=== PATIENT | female | born 1955 | race Caucasian/White ===

== ENCOUNTER 2018-11-04 21:08 | Inpatient (IN) | payer BC, MEDICARE ==
[2018-11-04] MEDS ORDERED: NS 0.9% 1000 ML** 1,000 ML IV ONE ×2 (21:42→23:00)
[2018-11-04] MEDS ORDERED: Ondansetron INJ* 2 MG/ML VIAL IV ONE (21:42)
[2018-11-04] MEDS ORDERED: Morphine VIAL* 10 MG/ML 1 ML VIAL IV ONE (21:42)
--- NOTE | 2018-11-04 21:53 | ED ---
Abdominal Pain/Female - HPI Summary HPI Summary: Patient complains of sudden onset left side abdominal pain starting at 7 PM tonight with associated nausea. Abdominal pain described as constant with spikes, worse with inhalation, worse with movement, radiating to left side back and middle abdomen. Patient states pain./10. Denies prior history of same. Also denies trauma, fever, cough, sore throat, CP, SOB, V/D, change in urine, change in BM, vaginal symptoms. Medical history is HTN, hypothyroid, GERD. Abdominal surgical history is hiatal hernia, total hysterectomy, 2. History of hypertension, patient states she normally takes her evening hypertension meds at 9:30pm. - History of Current Complaint Chief Complaint: EDAbdPain Stated Complaint: ABD PAIN PER PT Time Seen by Provider: 11/04/18 21:40 Hx Obtained From: Patient Onset/Duration: Sudden Onset, Lasting Hours Timing: Constant Severity Initially: Severe Severity Currently: Severe Pain Intensity: 10 Pain Scale Used: 0-10 Numeric Location: Discrete At: LUQ Radiates to: Back Aggravating Factor(s): Movement, Deep Breaths Alleviating Factor(s): Nothing Associated Signs and Symptoms: Positive: Back Pain, Nausea Allergies/Adverse Reactions: Allergies Allergy/AdvReac Type Severity Reaction Status Date / Time adhesive tape Allergy Rash Verified 11/04/18 21:12 latex Allergy Rash Verified 11/24/17 11:26 Home Medications: Home Medications Ascorbic Acid TAB* [Vitamin C TAB*] 500 mg PO DAILY 11/04/18 [History Confirmed 11/04/18] Polyethylene Glycol 3350 17 g PO DAILY 11/04/18 [History Confirmed 11/04/18] PMH/Surg Hx/FS Hx/Imm Hx Endocrine/Hematology History: Denies: Hx Diabetes Cardiovascular History: Reports: Hx Hypertension - on meds Denies: Hx Pacemaker/ICD Respiratory History: Denies: Hx Asthma GI History: Reports: Other GI Disorders - acid reflux History: Denies: Hx Dialysis, Hx Renal Disease Musculoskeletal History: Reports: Hx Arthritis, Hx Back Problems Denies: Hx Rheumatoid Arthritis, Hx Osteoporosis Sensory History: Denies: Hx Hearing Aid Opthamlomology History: Denies: Hx Eye Prosthesis EENT History: Denies: Hx Deafness Neurological History: Denies: Hx Developmental Delay Psychiatric History: Denies: Hx Panic Disorder - Cancer History Hx Chemotherapy: No Hx Radiation Therapy: No - Surgical History Surgery Procedure, Year, and Place: 1999 hyster; 2002 hiatal hernia repair and endoscopy for acid reflux. 2X c-sect in 1971 & 1974. Infectious Disease History: No Infectious Disease History: Denies: Traveled Outside the [place] in Last 30 Days - Social History Alcohol Use: None Substance Use Type: Reports: None Smoking Status (MU): Former Smoker Type: Cigarettes Have You Smoked in the Last Year: No Review of Systems Constitutional: Negative Eyes: Negative ENT: Negative Cardiovascular: Negative Respiratory: Negative Positive: Abdominal Pain, Nausea Genitourinary: Negative Musculoskeletal: Negative Skin: Negative Neurological: Negative Psychological: Normal All Other Systems Reviewed And Are Negative: Yes Physical Exam - Summary Physical Exam Summary: Moderate tenderness to palpation left upper quadrant, epigastrium. Abdominal exam otherwise unremarkable. Lung sounds clear to auscultation bilaterally. RRR. Triage Information Reviewed: Yes Vital Signs On Initial Exam: Initial Vitals Temp Pulse Resp BP Pulse Ox 97.5 F 79 18 213/88 96 11/04/18 21:11 11/04/18 21:11 11/04/18 21:11 11/04/18 21:11 11/04/18 21:11 Vital Signs Reviewed: Yes Appearance: Positive: Well-Appearing Skin: Positive: Warm Head/Face: Positive: Normal Head/Face Inspection Eyes: Positive: Normal Neck: Positive: Supple Respiratory/Lung Sounds: Positive: Clear to Auscultation Cardiovascular: Positive: Normal Abdomen Description: Positive: Other: Musculoskeletal: Positive: Normal Neurological: Positive: Normal Psychiatric: Positive: Normal AVPU Assessment: Alert - [place] Coma Scale Best Eye Response: 4 - Spontaneous Best Motor Response: 6 - Obeys Commands Best Verbal Response: 5 - Oriented Coma Scale Total: 15 Diagnostics - Vital Signs Vital Signs Temp Pulse Resp BP Pulse Ox 11/04/18 21:11 97.5 F 79 18 213/88 96 - Laboratory Result Diagrams: 11/04/18 21:52 11/04/18 21:52 Lab Statement: Any lab studies that have been ordered have been reviewed, and results considered in the medical decision making process. Abdominal Pain Fem Course/Dx - Course Course Of Treatment: Patient complains of sudden onset left side abdominal pain starting at 7 PM tonight with associated nausea. Abdominal pain described as constant with spikes, worse with inhalation, worse with movement, radiating to left side back and middle abdomen. Patient states pain./10. Denies prior history of same. Also denies trauma, fever, cough, sore throat, CP, SOB, V/D, change in urine, change in BM, vaginal symptoms. Medical history is HTN, hypothyroid, GERD. Abdominal surgical history is hiatal hernia, total hysterectomy, 2. History of hypertension, patient states she normally takes her evening hypertension meds at 9:30pm. Physical exam:Moderate tenderness to palpation left upper quadrant, epigastrium. Abdominal exam otherwise unremarkable. Lung sounds clear to auscultation bilaterally. RRR. Denies history of diabetes. States EtOH use 1-2 times a year. - Diagnoses Provider Diagnoses: Acute pancreatitis Discharge - Sign-Out/Discharge Documenting (check all that apply): Patient Departure Patient Received Moderate/Deep Sedation with Procedure: No - Discharge Plan Condition: Stable Disposition: ADMITTED TO [facility] Referrals: Payam Pineda MD [Primary Care Provider] - - Billing Disposition and Condition Condition: STABLE Disposition: Admitted to [facility]
[2018-11-04 21:57] LABS: Urine Appearance Cloudy; Urine Bacteria Absent (Absent); Urine Bilirubin Negative (Negative); Urine Blood Negative (Negative); Urine Color Yellow; Urine Glucose 2+(150 mg/dL) (Negative); Urine Ketones Negative (Negative); Urine Nitrite Negative (Negative); Urine Protein Negative (Negative); Urine Red Blood Cell Absent (Absent); Urine Specific Gravity 1.016 (1.010-1.030); Urine Squamous Epithelial Cell Present (Absent); Urine Urobilinogen Negative (Negative); Urine White Blood Cell Trace(0-5/hpf) (Absent)
[2018-11-04 22:05] LABS: ABS Basophils 0.1 10^3/ul (0-0.2); ABS Eosinophils 0.1 10^3/ul (0-0.6); ABS Lymphocytes 1.3 10^3/ul (1.0-4.8); ABS Monocytes 0.6 10^3/ul (0-0.8); ABS Neutrophils 4.6 10^3/ul (1.5-7.7); ABS Nucleated RBC 0 10^3/ul; Hematocrit 43 % (35-47); Hemoglobin 14.4 g/dl (12.0-16.0); Lymphocyte % 19.8 %; Mean Corpuscular HGB Conc 33 g/dl (31-36); Mean Corpuscular Hemoglobin 29 pg (27-31); Mean Corpuscular Volume 87 fL (80-97); Mean Platelet Volume 7.4 fL (7.4-10.4); Nucleated Red Blood Cells % 0.1; Platelet Count 266 10^3/ul (150-450); Red Blood Count 4.97 10^6/ul (4.00-5.40); Red Cell Distribution Width 16 % (10.5-15); White Blood Count 6.7 10^3/ul (3.5-10.8)
[2018-11-04 22:21] LABS: Albumin 3.9 g/dL (3.2-5.2); Albumin/Globulin Ratio 1.4 (1-3); BUN/Creatinine Ratio 24.3 (8-20); C Reactive Protein 6.55 mg/L (<8.01); EGFR African American 95.3 (>60); EGFR Non-African American 78.8 (>60); Globulin 2.8 g/dL (2-4); Total Bilirubin 0.4 mg/dL (0.2-1.0); Total Protein 6.7 g/dL (6.4-8.9)
[2018-11-04] MEDS ORDERED: Iohexol 300* (CONTRAST) 10 ML SDV IV ONE (22:30)
[2018-11-04 22:36] LABS: Potassium 4.4 mmol/L (3.5-5.0)
[2018-11-05] MEDS ORDERED: Lisinopril TAB* 10 MG PO ONE (00:02)
[2018-11-05] MEDS ORDERED: Morphine VIAL* 10 MG/ML 1 ML VIAL IV ONE (00:39)
[2018-11-05] MEDS ORDERED: Ondansetron INJ* 2 MG/ML VIAL IV PRN (00:50)
[2018-11-05] MEDS ORDERED: hydrALAZINE IV* 20 MG/ML VIAL IV SLOW PU PRN (00:51)
[2018-11-05] MEDS ORDERED: Metoprolol Tartrate IV* 1 MG/ML 5 ML VIAL IV PRN (00:53)
[2018-11-05] MEDS: NS 0.9% 1000 ML** 1,000 ML IV SCH ×2 (03:09→10:24)
[2018-11-05] MEDS: Enoxaparin(*) 40 MG/0.4 ML SYR SUBCUT SCH ×2 (03:13→21:20)
[2018-11-05 04:11] LABS: HDL Cholesterol 47.1 mg/dL
[2018-11-05 04:38] LABS: TSH (Thyroid Stimulating Horm) 9.54 mcIU/mL (0.34-5.60)
--- NOTE | 2018-11-05 05:09 | HP ---
ADMITTING HISTORY AND PHYSICAL: DATE OF ADMISSION: 11/05/18 CHIEF COMPLAINT: Left lower quadrant pain. HISTORY OF PRESENT ILLNESS: The patient is a 63-year-old lady with history of hypothyroidism, hypertension, and GERD as well as hypercholesterolemia who presented with the above chief complaint. She mentions that she was in her usual state of health until a few hours prior to admission, where she stated that she had recently enjoyed dinner with her family and they ate chicken casserole with olive oil. Two hours after their dinner, she started having some left lower quadrant abdominal pain, colicky in nature, that radiates to right across her middle abdomen and sometimes her back. No clear alleviating or exacerbating symptoms were presented by the patient. Persistence of her signs and symptoms led to her presentation and evaluation in the ER, at which point she was diagnosed to have acute pancreatitis due to her elevated lipase as well as CT scan findings consistent with acute pancreatitis. In the ED, she had been given morphine, lisinopril, 2 L normal saline bolus as well as Zofran. PAST MEDICAL HISTORY: Hypertension, hypothyroidism, GERD, hypercholesterolemia , status post 2 C-sections in the past, JOSH-BSO, status post hiatal hernia repair. ALLERGIES: NKDA. FAMILY HISTORY: Hypertension in her mother and sister. Hypothyroid in her sister. Diabetes in her 2 sisters and her mother. Ovarian cancer in her sister and her mother also had colon cancer. SOCIAL HISTORY: She quit back in 1999 and has at least a 1.8-izsa-isr-day history for 30 years. Denies any history of alcohol abuse. REVIEW OF SYSTEMS: The patient denied any current headaches, dizziness, fevers , chills. She does have some nausea, but no vomiting. She does have abdominal pain, but denies any recent constipation, diarrhea, myalgias, arthralgias, throat pain, or new skin lesions. Rest of the 14-point review of systems is, otherwise, unremarkable. PHYSICAL EXAMINATION GENERAL APPEARANCE: The patient is awake, alert, and oriented x3, not in acute distress. VITAL SIGNS: Show the most recent vital signs of records with blood pressure of 198/81, 70 beats per minute heart rate, saturating at 95% room air. HEENT: Normocephalic, atraumatic. PERRLA. Extraocular muscles are intact. Negative for icterus. Moist oral mucosa. Negative throat erythema. NECK: Soft, supple with no cervical lymphadenopathy. No JVD. CHEST: Clear to auscultation bilaterally. Good air entry. No wheezes, rales, or rhonchi. HEART: S1, S2, within normal limits. Regular rate and rhythm. No murmurs, rubs, or gallops. ABDOMEN: Soft, nondistended. Tender to the epigastric area. No rebound tenderness. Normoactive bowel sounds x4 quadrants. EXTREMITIES: No cyanosis, clubbing, or edema. PSYCHIATRIC: No active psychosis, depression, suicidal or homicidal ideation. SKIN: Warm to touch. DIAGNOSTIC STUDIES/LAB DATA: Most recent and pertinent laboratories show CBC with a WBC of 6.7, H and H of 14.4 and 43, platelets of 266. Sodium and potassium of 133 and 4.4. BUN and creatinine were found to be normal. GFR was normal. Calcium was normal. LFTs: AST of 36, ALT of 66, alkaline phosphatase of 130, total bilirubin is otherwise normal, lipase of 2605. CT scan of the abdomen shows gallbladder with no calcified stones or ductal dilatation. Pancreas has a peripancreatic induration, which is greatest about the tail and diminishes in the body. Also shows fatty liver disease, mild hiatal hernia, and status post hysterectomy. ASSESSMENT AND PLAN: The patient is a 63-year-old lady with history of hypertension, hypothyroidism, and gastroesophageal reflux disease being admitted for left lower quadrant abdominal pain due to acute pancreatitis. 1. Acute pancreatitis. Although she has history of hypercholesterolemia, she mentioned that she has stopped taking her medications in the past. Unclear what her baseline triglyceride levels are. The patient is obese and is certainly at high risk for hypertriglyceridemia and we will check fasting lipid levels in a.m. I have momentarily withheld her JAMES inhibitors and diuretics in the form of HCTZ given this can further increase the likelihood of pancreatitis. We will instead control her pressure with p.r.n. hydralazine and metoprolol thus ordered. 2. Hypothyroidism. Continue Synthroid and we will check TSH in a.m. 3. Hypertension, uncontrolled. Please see above discussion. 4. Hypercholesterolemia. We will check fasting lipid levels. We will continue watchful waiting at this time. Tomorrow, if she is able to tolerate her diet with improving clinical symptoms, she can be restarted back on her fish oil and any necessary meds that will be needed to control her hypercholesterolemia with or without hypertriglyceridemia. 5. Gastroesophageal reflux disease. Continue omeprazole. 6. Mildly elevated liver function tests. More consistent with fatty liver disease, likely due to the patient's obesity and hypertension as discussed. 7. DVT prophylaxis. We will place the patient on Lovenox subcu. 8. Disposition as above. [id number]/[facility] #: [id number] MTDD
[2018-11-05] MEDS: Levothyroxine TAB* 75 MCG TAB PO SCH (06:25)
[2018-11-05] MEDS: HYDROmorphone INJ1* 1 MG/ML SYRINGE IV SLOW PU PRN ×2 (06:34→21:32)
[2018-11-05] MEDS: Ascorbic Acid TAB* 500 MG PO SCH (08:46)
[2018-11-05] MEDS: Pantoprazole TAB * 40 MG TAB PO SCH (08:47)
[2018-11-05] MEDS ORDERED: NS 0.9% 1000 ML** 1,000 ML IV SCH (13:23)
--- NOTE | 2018-11-05 13:27 | PN ---
Subjective Date of Service: 11/05/18 Interval History: HD #1 on 11/05/18 63 yo F with PMH HTN, hypothyroid, GERD, HLD who presents with LUQ pain, found to have acute pancreatitis (unclear origin, no stone, marissa ~200, no etoh, no new meds). Admitted last night. No acute events, VSS, excellent UOP no BM yet This morning seen and feels OK, would like to advance diet, she actually is asking about going home but we discuss trial diet first. Tearful at times as she feels sad to be missing work, but supportive at bedside. She does still have epigastric pain, but improved with meds, denies CP, SOB, other GI or complaints Objective Active Medications: Ascorbic Acid (Vitamin C Tab*) 500 mg PO DAILY [facility] Last Admin: 11/05/18 08:46 Dose: 500 mg Enoxaparin Sodium (Lovenox(*)) 40 mg SUBCUT Q24HR@2100 [facility] Last Admin: 11/05/18 03:13 Dose: Not Given Hydralazine HCl (Apresoline Iv*) 10 mg IV SLOW PU Q6H PRN PRN Reason: Hypertension Hydromorphone HCl (Dilaudid Inj1s*) 0.5 mg IV SLOW PU Q6H PRN PRN Reason: PAIN Last Admin: 11/05/18 06:34 Dose: 0.5 mg Sodium Chloride (Ns 0.9% 1000 Ml) 1,000 mls @ 150 mls/hr IV PER RATE [facility] Stop: 11/07/18 07:39 Last Admin: 11/05/18 10:24 Dose: 150 mls/hr Levothyroxine Sodium (Synthroid Tab*) 75 mcg PO DAILY@0600 [facility] Last Admin: 11/05/18 06:25 Dose: 75 mcg Metoprolol Tartrate (Lopressor Iv*) 5 mg IV Q6H PRN PRN Reason: BLOOD PRESSURE Ondansetron HCl (Zofran Inj*) 4 mg IV Q6H PRN PRN Reason: NAUSEA Pantoprazole Sodium (Protonix Tab*) 40 mg PO DAILY [facility] Last Admin: 11/05/18 08:47 Dose: 40 mg Vital Signs - 8 hr 11/05/18 11/05/18 11/05/18 06:34 07:44 08:00 Temperature 97.8 F Pulse Rate 63 Respiratory 20 16 18 Rate Blood Pressure 133/58 (mmHg) O2 Sat by Pulse 94 Oximetry 11/05/18 08:46 Temperature Pulse Rate Respiratory 18 Rate Blood Pressure (mmHg) O2 Sat by Pulse Oximetry Oxygen Devices in Use Now: None Appearance: Pleasant woman in NAD Eyes: No Scleral Icterus Ears/Nose/Mouth/Throat: NL Teeth, Lips, Gums Neck: NL Appearance and Movements; NL JVP, Trachea Midline Respiratory: Symmetrical Chest Expansion and Respiratory Effort, Clear to Auscultation Cardiovascular: NL Sounds; No Murmurs; No JVD, RRR Abdominal: - - No distention, soft TTP epigastric no gaurding or rebound Lymphatic: No Cervical Adenopathy Extremities: No Edema Skin: No Rash or Ulcers Neurological: Alert and Oriented x 3 Result Diagrams: 11/04/18 21:52 11/04/18 21:52 Assess/Plan/Problems-Billing Assessment: 63F with PMH HTN, hypothyroidism, GERD, HLD who presents with LUQ pain, found to have acute pancreatitis of unclear origin without e/o gallbladder disease, hypertriglycerides, alcohol use or new medications. Presumed idiopathic at this time with a BiSAP score of 1. - Patient Problems (1) Pancreatitis Current Visit: Yes Status: Acute Code(s): K85.90 - ACUTE PANCREATITIS WITHOUT NECROSIS OR INFECTION, UNSP SNOMED Code(s): 65106305 Comment: Presumed idipoathic at this time, though hx of hypertri - Continue NS @ 50cc - Pain control with PRN dilaudid - NPO until dinner 11/05, then advance to clear liquids (2) Hypertension Current Visit: Yes Status: Acute Code(s): I10 - ESSENTIAL (PRIMARY) HYPERTENSION SNOMED Code(s): 07461169 Comment: Hypertensive 2/2 to pain on arrival, was placed on PRN IV - Watch today, resume home Lisinopril/HCTZ tomorrow 11/06 (3) Hypothyroid Current Visit: Yes Status: Acute Code(s): E03.9 - HYPOTHYROIDISM, UNSPECIFIED SNOMED Code(s): 66543926 Comment: - Continue home dose Levothyroxine - TSH slightly elevated (4) GERD (gastroesophageal reflux disease) Current Visit: Yes Status: Acute Code(s): K21.9 - GASTRO-ESOPHAGEAL REFLUX DISEASE WITHOUT ESOPHAGITIS SNOMED Code(s): 726699220 Comment: - Continue PPI (5) DVT prophylaxis Current Visit: Yes Status: Acute Code(s): CFW7716 - SNOMED Code(s): 338450783 Comment: - LMWH (6) Full code status Current Visit: Yes Status: Acute Code(s): Z78.9 - OTHER SPECIFIED HEALTH STATUS SNOMED Code(s): 953654987 Status and Disposition: Inpatient at this time for IV fluids and pain meds. If tolerating reasonable PO could d/c to home.
[2018-11-05] MEDS: Al Hydrox/Mg Hydrox/Simet LIQ* 30 ML UDC PO PRN (17:42)
[2018-11-06] MEDS: Levothyroxine TAB* 75 MCG TAB PO SCH (05:36)
[2018-11-06 06:26] LABS: ABS Basophils 0 10^3/ul (0-0.2); ABS Eosinophils 0.1 10^3/ul (0-0.6); ABS Lymphocytes 1.2 10^3/ul (1.0-4.8); ABS Monocytes 0.9 10^3/ul (0-0.8); ABS Neutrophils 6.7 10^3/ul (1.5-7.7); ABS Nucleated RBC 0 10^3/ul; Eosinophil % 1.1 %; Hematocrit 41 % (35-47); Hemoglobin 13.5 g/dl (12.0-16.0); Lymphocyte % 13.1 %; Mean Corpuscular HGB Conc 33 g/dl (31-36); Mean Corpuscular Hemoglobin 29 pg (27-31); Mean Corpuscular Volume 87 fL (80-97); Mean Platelet Volume 7.8 fL (7.4-10.4); Nucleated Red Blood Cells % 0; Platelet Count 256 10^3/ul (150-450); Red Blood Count 4.73 10^6/ul (4.00-5.40); Red Cell Distribution Width 15 % (10.5-15); White Blood Count 8.8 10^3/ul (3.5-10.8)
[2018-11-06 06:49] LABS: Albumin 3.6 g/dL (3.2-5.2); Albumin/Globulin Ratio 1.3 (1-3); BUN/Creatinine Ratio 18.6 (8-20); Calcium 8.6 mg/dL (8.6-10.3); EGFR African American 123.8 (>60); EGFR Non-African American 102.3 (>60); Globulin 2.8 g/dL (2-4); Magnesium 1.9 mg/dL (1.9-2.7); Phosphorus 2.8 mg/dL (2.5-5.0); Total Protein 6.4 g/dL (6.4-8.9)
[2018-11-06] MEDS: Lisinopril TAB* 10 MG PO SCH (08:32)
[2018-11-06] MEDS: Ascorbic Acid TAB* 500 MG PO SCH (08:32)
[2018-11-06] MEDS: Hydrochlorothiazide TAB* 25 MG PO SCH (08:32)
[2018-11-06] MEDS: Pantoprazole TAB * 40 MG TAB PO SCH (08:33)
[2018-11-06] MEDS: Acetaminophen TAB* 325 MG PO PRN (09:38)
[2018-11-06] MEDS: Polyethylene Glycol 3350* 17 GM PACKET PO SCH ×2 (12:02→20:10)
[2018-11-06] MEDS: Al Hydrox/Mg Hydrox/Simet LIQ* 30 ML UDC PO PRN (15:18)
--- NOTE | 2018-11-06 15:25 | PN ---
Subjective Date of Service: 11/06/18 Interval History: HOSPITALIST PROGRESS NOTE Patient seen and examined at bedside. Care reviewed and d/w April Dupree RN. She feels better today. Abdominal pain is much improved, "just sore now". Denies N/V, tolerating clear liquids well. Passing flatus, no BM. Describes prior episodes of abdominal pain, but not as severe, sometimes associated with greasy food. Describes severe hypertrygliceridemia many years ago, not responsive to meds. She decided to stop taking her pills and doesn't check them anymore. Family History: Unchanged from Admission Social History: Unchanged from Admission Past Medical History: Unchanged from Admission Objective Active Medications: Acetaminophen (Tylenol Tab*) 650 mg PO Q6H PRN PRN Reason: PAIN Last Admin: 11/06/18 09:38 Dose: 650 mg Al Hydrox/Mg Hydrox/Simethicone (Maalox Plus*) 30 ml PO Q4H PRN PRN Reason: DYSPEPSIA Last Admin: 11/06/18 15:18 Dose: 30 ml Ascorbic Acid (Vitamin C Tab*) 500 mg PO DAILY [facility] Last Admin: 11/06/18 08:32 Dose: 500 mg Enoxaparin Sodium (Lovenox(*)) 40 mg SUBCUT Q24HR@2100 [facility] Last Admin: 11/05/18 21:20 Dose: Not Given Hydrochlorothiazide (Hydrodiuril Tab*) 12.5 mg PO DAILY [facility] Last Admin: 11/06/18 08:32 Dose: 12.5 mg Hydromorphone HCl (Dilaudid Inj1s*) 0.5 mg IV SLOW PU Q6H PRN PRN Reason: PAIN Last Admin: 11/05/18 21:32 Dose: 0.5 mg Levothyroxine Sodium (Synthroid Tab*) 75 mcg PO DAILY@0600 [facility] Last Admin: 11/06/18 05:36 Dose: 75 mcg Lisinopril (Prinivil Tab*) 10 mg PO DAILY [facility] Last Admin: 11/06/18 08:32 Dose: 10 mg Ondansetron HCl (Zofran Inj*) 4 mg IV Q6H PRN PRN Reason: NAUSEA Last Admin: 11/05/18 21:31 Dose: 4 mg Pantoprazole Sodium (Protonix Tab*) 40 mg PO DAILY [facility] Last Admin: 11/06/18 08:33 Dose: 40 mg Polyethylene Glycol/Electrolytes (Miralax*) 17 gm PO 0800,2100 [facility] Last Admin: 11/06/18 12:02 Dose: 17 gm Vital Signs - 8 hr 11/06/18 11/06/18 11/06/18 07:43 08:06 11:27 Temperature 97.7 F 97.6 F Pulse Rate 82 72 Respiratory 16 18 20 Rate Blood Pressure 157/68 156/70 (mmHg) O2 Sat by Pulse 92 95 Oximetry 11/06/18 11/06/18 11:48 11:54 Temperature 97.6 F Pulse Rate 72 Respiratory 20 16 Rate Blood Pressure 156/70 (mmHg) O2 Sat by Pulse 95 Oximetry Oxygen Devices in Use Now: None Appearance: Obese lady sitting up in a recliner in NAD. Eyes: No Scleral Icterus Ears/Nose/Mouth/Throat: Mucous Membranes Moist Neck: Trachea Midline Respiratory: Symmetrical Chest Expansion and Respiratory Effort, Clear to Auscultation Cardiovascular: NL Sounds; No Murmurs; No JVD, RRR Abdominal: NL Sounds; No Tenderness; No Distention Neurological: Alert and Oriented x 3, NL Muscle Strength and Tone Result Diagrams: 11/06/18 05:52 11/06/18 05:52 Assess/Plan/Problems-Billing Assessment: 63yo F with PMH HTN, hypothyroidism, GERD, HLD who presents with LUQ pain, found to have acute pancreatitis of unclear origin without gallbladder disease, hypertriglycerides, alcohol use or new medications. - Patient Problems (1) Pancreatitis Comment: - She denies ETOH use or new medications. TG are 274. - With her body habitus and prior episodes of pain with fatty food, suspect it could still be biliary - check RUQ US. - Autoimmune less likely, but also possible - check IgG4. - GI consult requested. - Advance to low fat diet as tolerated. - D/c IVF. (2) Hypertension Comment: - Better controlled. - Continue Lisinopril/HCTZ. (3) GERD (gastroesophageal reflux disease) Comment: - Continue Pantoprazole. (4) Hypothyroid Comment: - Continue home dose Levothyroxine. (5) DVT prophylaxis Comment: - Lovenox. (6) Full code status Status and Disposition: Inpatient.
--- NOTE | 2018-11-06 17:57 | CONS ---
GASTROENTEROLOGY CONSULT: DATE: 11/06/18 REFERRING PHYSICIANS: Dr. Payam Pineda, Dr. Nisa Cook. REASON FOR CONSULT: Pancreatitis without clear-cut cause. HISTORY: This 63-year-old woman, title i director for [employer], came to the emergency room Monday evening with the onset of left mid to lower quadrant abdominal pain that went around to the back somewhat. Her vitals were steady. CBC showed a normal white count, but her lipase was substantially elevated at [address] scan suggested pancreatitis. Over the next couple days, she has felt better and yesterday she had clear liquids and then today a soft diet, though she developed some increased pain after some meat for lunch. She states she has had other episodes of pain similar to this, one about a year ago that did not go on as long and she did not seek any care and may be one 5 years ago. She differentiates this pain from that which is characteristic of her acid indigestion and/or was relieved by having a fundoplication a dozen years ago. Her current blood pressure medicines, hydrochlorothiazide and benazepril, have been taken for more than 20 years. Her cholesterol has been up, but apparently not her triglycerides. She quit taking her cholesterol medicine 2 years ago since "it never got to be where he wanted it to be." Again, she stopped it 2 years ago and is considering restarting it. There is no family history of pancreatitis. It is remarkable that this is her only emergency room visit in the last 19 years. PAST MEDICAL HISTORY: 1. Morbid obesity. 2. Hypertension - no sequelae. 3. Hypothyroidism. 4. Status post x2. 5. Total abdominal hysterectomy and oophorectomy in 1999. 6. Laparoscopic Ac fundoplication - she was off acid blockers for about 6 years with this. 7. Ex-smoker - quit in 1999, at which point, she gained a lot of weight. 8. Family history of colon cancer - she has gotten regular colonoscopies through the years including 2012. 9. Persistent GERD - she had upper endoscopy by Dr. Griffiths, May 2018. MEDICATIONS: As an outpatient, omeprazole 20 mg once or twice a day, hydrochlorothiazide 12.5, benazepril 30, Cetirizine 10 mg p.r.n., polyethylene glycol p.r.n. SOCIAL HISTORY: She is and has 2 children. The only medical person in the family is a niece in [place], who works at a [employer]. REVIEW OF SYSTEMS: No history of syncope, palpitations, TX, TB, hemoptysis, TIA , CVA, seizure, hepatitis, or jaundice. The vast majority of her labs had been at Dr. Pineda's office. The only triglycerides here yesterday of 275. EXAM: She is a morbidly obese woman, lying in bed, smiling, sitting upright, entertaining her and daughter. She is afebrile, pulse 72 and regular, blood pressure 156/70. HEENT exam is unremarkable. She has no icterus. There is no adenopathy. Her lungs are clear, heart sounds are regular. Breast and pelvic exams deferred. The abdomen is grossly obese, but symmetric. There is no gross hernia. Bowel sounds are normal and active. There is some deep tenderness, but the exam is quite limited. Extremities show obesity, 1+ ankle edema, and no other abnormality. LABS: Lipase has fallen to 221. LFTs have remained normal. Remarkably, her CRP is not really elevated as it is 6.55. BUN is 11, creatinine 0.59. Gallbladder ultrasound - some sludge and a common duct of 5 mm. There is a fatty liver. CT scan - mild stranding around the pancreas. There is no pancreatic duct dilation. On the sagittal images, series 601, image 52 shows a symmetric pancreatic duct, which is 52 to 55. IMPRESSION: This 63-year-old woman with morbid obesity has had her first documented bout of pancreatitis. Etiology is not quite clear. It is not alcohol and not any new medication. I doubt the blood pressure medicines given 20 years ago are related. If triglycerides over 750 to [address] documented in Dr. Pineda's past records, I would favor the gallbladder sludge as being potential etiologic and a surgery consult for potential cholecystectomy. There is certainly uncertainty in this assessment, but the possibilities are limited and potential benefit for cholecystectomy is substantial. [id number]/[facility] #: [id number] [facility]
[2018-11-06] MEDS: Enoxaparin(*) 40 MG/0.4 ML SYR SUBCUT SCH (21:00)
[2018-11-07] MEDS: Acetaminophen TAB* 325 MG PO PRN (00:12)
[2018-11-07] MEDS: Levothyroxine TAB* 75 MCG TAB PO SCH (05:08)
[2018-11-07 08:30] VITALS: BP 148/66
[2018-11-07] MEDS: Polyethylene Glycol 3350* 17 GM PACKET PO SCH (08:31)
[2018-11-07] MEDS: Ascorbic Acid TAB* 500 MG PO SCH (08:32)
[2018-11-07] MEDS: Hydrochlorothiazide TAB* 25 MG PO SCH (08:32)
[2018-11-07] MEDS: Lisinopril TAB* 10 MG PO SCH (08:33)
[2018-11-07] MEDS: Pantoprazole TAB * 40 MG TAB PO SCH (08:33)
[2018-11-07 08:38] LABS: ABS Basophils 0.1 10^3/ul (0-0.2); ABS Eosinophils 0.2 10^3/ul (0-0.6); ABS Lymphocytes 1.2 10^3/ul (1.0-4.8); ABS Monocytes 0.9 10^3/ul (0-0.8); ABS Neutrophils 6.3 10^3/ul (1.5-7.7); ABS Nucleated RBC 0 10^3/ul; Eosinophil % 2.3 %; Hematocrit 40 % (35-47); Hemoglobin 13.3 g/dl (12.0-16.0); Lymphocyte % 14.1 %; Mean Corpuscular HGB Conc 34 g/dl (31-36); Mean Corpuscular Hemoglobin 29 pg (27-31); Mean Corpuscular Volume 87 fL (80-97); Mean Platelet Volume 7.2 fL (7.4-10.4); Nucleated Red Blood Cells % 0; Platelet Count 248 10^3/ul (150-450); Red Blood Count 4.57 10^6/ul (4.00-5.40); Red Cell Distribution Width 15 % (10.5-15); White Blood Count 8.7 10^3/ul (3.5-10.8)
[2018-11-07 09:01] LABS: Albumin 3.6 g/dL (3.2-5.2); Albumin/Globulin Ratio 1.3 (1-3); BUN/Creatinine Ratio 16.1 (8-20); Calcium 8.8 mg/dL (8.6-10.3); EGFR African American 116.9 (>60); EGFR Non-African American 96.6 (>60); Globulin 2.8 g/dL (2-4); Potassium 3.8 mmol/L (3.5-5.0); Total Bilirubin 1.2 mg/dL (0.2-1.0); Total Protein 6.4 g/dL (6.4-8.9)
--- NOTE | 2018-11-08 10:23 | DS ---
CC: Dr. Pineda; Dr. Glass * DISCHARGE SUMMARY: DATE OF ADMISSION: 11/05/18. DATE OF DISCHARGE: 11/07/18. PRIMARY CARE PROVIDER: Dr. Pineda. CONSULTING DUMPCART DRIVER: Dr. Glass. DISCHARGE DIAGNOSIS: Acute pancreatitis, hypertriglyceridemia induced versus biliary. SECONDARY DIAGNOSES: 1. Hypertension. 2. Hypothyroidism. 3. Gastroesophageal reflux disease. 4. Mixed hyperlipidemia. 5. Obesity with a BMI of 38. MEDICATION LIST: 1. Vitamin C 500 mg p.o. daily. 2. Benazepril 30 mg p.o. daily. 3. Cetirizine 10 mg p.o. daily. 4. Hydrochlorothiazide 12.5 mg p.o. daily. 5. Levothyroxine 75 mcg p.o. daily. 6. Multivitamin 1 tablet p.o. daily. 7. Fish oil 1000 mg p.o. daily. 8. Omeprazole 20 mg p.o. b.i.d. 9. MiraLAX 17 g p.o. daily. New medication: 1. Rosuvastatin 10 mg p.o. daily. HOSPITAL COURSE: Ms. Rowell is a 63-year-old lady with a past medical history as stated above that presented to the emergency room with complaints of left- sided abdominal pain that had started after enjoying dinner of chicken casserole made with olive oil. The pain was described as colicky in nature, radiating to the middle abdomen and to her back. For more details about her presentation, I refer you to her history and physical. In the emergency room, the patient was noted to have a lipase of 2600. CT of the abdomen and pelvis showed acute interstitial edematous pancreatitis, which is greatest above the tail and to a lesser degree the body. Fatty infiltration of the liver. The patient was admitted under the impression of pancreatitis. The etiology was not immediately clear. The patient does have the body habitus and a history that would suggest biliary etiology, especially considering that she had similar episodes in the past after eating fatty foods, but not as severe as this one and they would resolve spontaneously. Right upper quadrant ultrasound revealed hepatomegaly with fatty infiltration of the liver and biliary sludge, but the CBD measured 0.5 cm and there was no cholelithiasis, wall thickening or pericholecystic fluid. On the other hand, the patient also has a history of untreated hypertriglyceridemia. Her triglycerides in the hospital were 274, but as per information from her PCP's office, she has had numbers in the 700s to 800s. There is no new medication to suggest drugs as etiology, and IgG was sent for autoimmune hepatitis and this is negative. She was seen in consultation by Gastroenterology (Dr. Glass), who agreed with this conundrum of biliary versus hypertriglyceridemia as etiology. After multiple conversations with the patient, Dr. Glass and Dr. Pineda, the plan at this point is for the patient to be discharged home as her symptoms have resolved and she is able to tolerate a low-fat diet. She is agreeable with trying lipid-lowering drugs again and she will be started on rosuvastatin next week. Her PCP will monitor her lipid profile. As described above, I am concerned that her presentation could still be compatible with a biliary etiology and I discussed with the patient the possibility of surgical consultation for laparoscopic cholecystectomy, but she is hesitant to pursue surgery at this time. She wants to try rosuvastatin and hopefully she would not have another episode as long as she adheres to her low fat diet, but if she does develop symptoms again even if self limited, I believe a surgical consultation is indicated for an elective laparoscopic cholecystectomy. The patient had resolution of her abdominal pain, was asymptomatic, able to tolerate a low fat diet and anxious for discharge. She did have low-grade fever of 100.8 the night prior to discharge with no other signs of infection. No leukocytosis. Other vital signs were stable and as described, her right upper quadrant ultrasound had no signs of cholecystitis. Urinalysis was also negative. She had no respiratory symptoms, so this one episode of low-grade fever would not require her staying longer in the hospital and I do not think antibiotics are indicated also. The patient does not have a diagnosis of diabetes, but she did have hyperglycemia while in the hospital. This may be secondary to her pancreatitis. At this point, she was advised to lower her carbohydrate intake and a hemoglobin A1c was requested and the results should be followed as outpatient, as the patient does meet the body habitus of someone with metabolic syndrome and she is at high risk for type 2 diabetes. Her PCP needs to follow up the hemoglobin A1c result as outpatient. PHYSICAL EXAMINATION: Vital Signs: Temperature 97.8, heart rate is 95, respiratory rate is 18, oxygen saturation 95% on room air, blood pressure is 148 /66. General: The patient is a pleasant obese elderly lady, sitting up in bed in no acute distress. CVS: Normal S1, S2. Regular rate and rhythm. Chest: Breath sounds bilaterally with no added sounds. Abdomen is soft, nontender, nondistended. Bowel sounds are present. Extremities: No edema. Neuro: She is alert and oriented x3. She is able to move all 4 extremities. DIET: Low-fat consistent carb diet. ACTIVITIES: As tolerated. DISPOSITION: To home. STATUS WHILE IN THE HOSPITAL: Inpatient. CONDITION AT THE TIME OF DISCHARGE: Fair. Please keep in mind this is a summarized version of this patient's hospital stay. If you need more information, please feel free to call me at [phone] or please obtain the full medical records. TIME SPENT: Approximately 45 minutes were spent to complete this discharge. [id number]/CPS #: [id number] MTDD
== END 2018-11-07 12:07 | disposition home or self-care (01) | DRG 282 ==
LOC: ED 21:08 → MEDTELE 11-05 00:43
PROVIDERS: ADMIT Student in an Organized Health Care Education/Training Program; ATTEND Internal Medicine
DX: K85.10 Biliary acute pancreatitis without necrosis or infection (principal); I10 Essential (primary) hypertension; E03.9 Hypothyroidism, unspecified; K21.9 Gastro-esophageal reflux disease without esophagitis; M19.90 Unspecified osteoarthritis, unspecified site; R40.2412 Glasgow coma scale score 13-15, at arrival to emergency department; K44.9 Diaphragmatic hernia without obstruction or gangrene; K76.0 Fatty (change of) liver, not elsewhere classified; E66.01 Morbid (severe) obesity due to excess calories; E78.1 Pure hyperglyceridemia; R73.9 Hyperglycemia, unspecified; E88.81 Metabolic syndrome and other insulin resistance; E78.2 Mixed hyperlipidemia; Z90.710 Acquired absence of both cervix and uterus; Z87.891 Personal history of nicotine dependence; Z90.722 Acquired absence of ovaries, bilateral; Z80.0 Family history of malignant neoplasm of digestive organs; Z72.89 Other problems related to lifestyle; Z68.38 Body mass index [BMI] 38.0-38.9, adult; Z88.8 Allergy status to other drugs, medicaments and biological substances; Z91.040 Latex allergy status
CPT/HCPCS: 36415; 74177; 76705; 80053; 80061; 81003; 81015; 82150; 82784; 82787; 83036; 83605; 83690; 83735; 84100; 84443; 84484; 85025; 86140; 87086; 93005; 99284; A9270-GY; J0360; J1170; J1650; J2270; J2405; Q9967

== ENCOUNTER 2018-11-22 15:24 | Inpatient (IN) | payer BC, MEDICARE ==
--- OUTSIDE RECORDS SUMMARY | 2018-11-22 15:50 | XMS REPORT | Continuity of Care Document ---
:1955 External Reference #:[id number] Author Name HugoCelioenrrique Care Team Providers Name Role Phone Payam Pineda MD Primary Care Physician Unavailable Payers Date Identification Numbers Payment Provider Subscriber Effective: 2011 Policy Number: [id number] [employer] Lamine Rowell Expires: 2017 PayID: [id number] [address] [address] [place]av[place] [address] Effective: 2017 Policy Number: [id number] [employer] [place] Lamine Rowell Expires: 2018 PayID: [id number] [address] [address] [place] Villavicencio [address] Effective: 2018 Policy Number: [id number] BS Ayana Rowell PayID: [id number] [address] [address] [place] Villavicencio [address] Effective: 2018 Policy Number: [id number] Medicare Bia Rowell PayID: [id number] [address] [place] [address] Advance Directives Description No Information Available Problems Description No Information Family History Date Family Member(s) Observation Comments General Cancer General Diabetes General Heart Disease Social History Type Date Description Comments Sex Unknown 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 ETOH Use Denies alcohol use Tobacco Use Start: Unknown Patient has never smoked Smoking Status Reviewed: 11/20/18 Patient has never smoked Exercise Type/Frequency Does not exercise Allergies, Adverse Reactions, Alerts Description No Known Drug Allergies Medications Medication Date Status Form Strength Qnty SIG Indications Ordering Provider Levothyroxine Sodium / Active Tablets 75mcg 90tab 1 by Unknown 0000 s mouth every day Hydrochlorothiazide / Active Tablets 12.5mg 90tab 1 by Unknown 0000 s mouth every day Benazepril HCL / Active Tablets 20mg 30tab 1 by Unknown 0000 s mouth every day Multivitamins / Active Unknown 0000 Vitamin C / Active Unknown 0000 Omeprazole / Active Capsules 20mg 90cap [address] s mouth every day Crestor / Active Tablets 10mg 1 by Unknown 0000 mouth every day Welchol / Hx Tablets 625mg 180ta 3 by Unknown 0000 - bs mouth 09/24/ twice 2019 a day Medications Administered in Office Medication Date Status Form Strength Qnty SIG Indications Ordering Provider Depomedrol Administered Injection Clarisse 40MG 018 SUSAN De Oliveira Immunizations Description No Information Available Vital Signs Date Vital Result Comment 11/20/2018 8:00am Height 65 inches 5'5" Weight 210.00 lb Heart Rate 72 /min BP Systolic 120 mmHg BP Diastolic 70 mmHg Respiratory Rate 12 /min Pain Level 4 BMI (Body Mass Index) 34.9 kg/m2 08/22/2018 2:50pm Height 65 inches 5'5" Weight 223.00 lb Heart Rate 85 /min BP Systolic 140 mmHg BP Diastolic 72 mmHg Respiratory Rate 20 /min Body Temperature 96.3 F Pain Level 4 BMI (Body Mass Index) 37.1 kg/m2 07/10/2018 1:24pm Height 65 inches 5'5" Weight 223.00 lb Heart Rate 76 /min BP Systolic 142 mmHg BP Diastolic 80 mmHg Respiratory Rate 14 /min Pain Level 8 BMI (Body Mass Index) 37.1 kg/m2 09/24/2014 2:05pm Height 65 inches 5'5" Weight 220.00 lb Pain Level 0 BMI (Body Mass Index) 36.6 kg/m2 09/03/2014 3:29pm Height 65 inches 5'5" Weight 220.00 lb Pain Level 0 BMI (Body Mass Index) 36.6 kg/m2 08/13/2014 4:10pm Height 65 inches 5'5" Weight 220.00 lb Heart Rate 100 /min BMI (Body Mass Index) 36.6 kg/m2 07/30/2014 6:27pm Height 65 inches 5'5" Weight 220.00 lb Heart Rate 90 /min BP Systolic 156 mmHg BP Diastolic 84 mmHg BMI (Body Mass Index) 36.6 kg/m2 Results Description No Information Available Procedures Date Code Description Status 07/10/201823151 Inject/Drain Joint/Bursa Major W/O US Completed 09/03/2014 65224 Rad Exam; Ankle Comp Completed 08/13/2014 69647 Rad Exam; Ankle Comp Completed 08/13/2014 87788 Walking Cast Completed 07/30/2014 99782 CLSD TX Distal Fib FX (Lateral Malleolus) w/o manipulation Completed Encounters Type Date Location Provider Dx Diagnosis [facility] Acute pancreatitis 9:45a dc Mackey M.D. without necrosis or Hospitalists infection, unsp I10 Essential (primary) hypertension E03.9 Hypothyroidism, unspecified K21.9 Gastro-esophageal reflux disease without esophagitis E78.5 Hyperlipidemia, unspecified E66.9 Obesity, unspecified Z68.38 Body mass index (BMI) 38.0-38.9, adult [facility] 9:40a dc Mackey M.D. without necrosis Hospitalists or infection, unsp I10 Essential (primary) hypertension K21.9 Gastro-esophageal reflux disease without esophagitis E03.9 Hypothyroidism, unspecified Office Visit 11/05/2018 [facility] Holger Robbins K85.90 Acute 9:38a dc Mackey MD pancreatitis Hospitalists without necrosis or infection, unsp E03.9 Hypothyroidism, unspecified I16.0 Hypertensive urgency E78.00 Pure hypercholesterolemia, unspecified K21.9 Gastro-esophageal reflux disease without esophagitis R94.5 Abnormal results of liver function studies Office Visit 08/22/2018 [facility] M17.12 Unilateral primary 2:45p Services Of MD Ramya osteoarthritis, left Larissa.MBarbi knee M25.562 Pain in left knee Office Visit 07/10/2018 1:15p [facility] M25.562 Pain in left Services Of Arlen Bui MD knee M17.12 Unilateral primary osteoarthritis, left knee Plan of Treatment 11/20/2018 - Ward Bui, MDM25.562 Pain in left kneeNew Xrays:MRI Knee Left W/O, Ordered: 11/20/18Follow up:Follow up: after MRI
[2018-11-22] MEDS ORDERED: NS 0.9% 1000 ML** 1,000 ML IV ONE (17:06)
[2018-11-22] MEDS ORDERED: Morphine 10 MG/ML VIAL (1 ml) IV ONE (17:08)
[2018-11-22] MEDS ORDERED: Ondansetron INJ* 2 MG/ML VIAL IV ONE (17:08)
--- NOTE | 2018-11-22 17:11 | ED ---
Abdominal Pain/Female - HPI Summary HPI Summary: This pt is a 63 y/[facility] left sided abdominal pain since 14:00 today. She describes her pain from left side of her abd radiating to her umbilicus. Pt reports associated symptoms of nausea. Denies diarrhea, fever, chest pain, SOB. Pt rates her pain currently 10/10 in severity. She reports today's pain feels similar to when she was admitted on 11/05/18 for acute pancreatitis. NKDA. - History of Current Complaint Chief Complaint: EDAbdPain Stated Complaint: ABD PAIN, NAUSEA PER PT Time Seen by Provider: 11/22/18 16:53 Hx Obtained From: Patient Onset/Duration: Lasting Hours, Still Present Timing: Hours Severity Currently: Severe Pain Intensity: 10 Pain Scale Used: 0-10 Numeric Location: Other - left sided Radiates: No Aggravating Factor(s): Nothing Alleviating Factor(s): Nothing Associated Signs and Symptoms: Positive: Nausea. Negative: Fever, Chest Pain, Diarrhea Allergies/Adverse Reactions: Allergies Allergy/AdvReac Type Severity Reaction Status Date / Time adhesive tape Allergy Rash Verified 11/21/18 14:34 PMH/Surg Hx/FS Hx/Imm Hx Endocrine/Hematology History: Reports: Hx Thyroid Disease Denies: Hx Diabetes, Hx Unexplained Bleeding Cardiovascular History: Reports: Hx Hypercholesterolemia, Hx Hypertension - on meds Denies: Hx Aneurysm, Hx Cardiac Arrest, Hx Congenital Heart Disease, Hx Coronary Artery Disease, Hx Deep Vein Thrombosis, Hx Pacemaker/ICD, Hx Peripheral Vascular Disease, Hx Rheumatic Fever, Hx Syncope, Hx Valvular Heart Disease Respiratory History: Denies: Hx Asthma, Hx Chronic Obstructive Pulmonary Disease (COPD), Hx Lung Cancer, Hx Pulmonary Edema, Hx Sleep Apnea GI History: Reports: Hx Gastroesophageal Reflux Disease, Hx Hiatal Hernia, Other GI Disorders - acid reflux History: Denies: Hx Acute Renal Failure, Hx Dialysis, Hx Kidney Infection, Hx Kidney Stones, Hx Renal Disease Musculoskeletal History: Reports: Hx Arthritis, Hx Back Problems Denies: Hx Rheumatoid Arthritis, Hx Osteoporosis Sensory History: Reports: Hx Contacts or Glasses Denies: Hx Cataracts, Hx Eye Injury, Hx Eye Prosthesis, Hx Glaucoma, Hx Legally Blind, Hx Vision Problem, Hx Deafness, Hx Hearing Aid, Hx Hearing Problem, Other Sensory Impairments Opthamlomology History: Reports: Hx Contacts or Glasses Denies: Hx Cataracts, Hx Eye Injury, Hx Eye Prosthesis, Hx Glaucoma, Hx Legally Blind, Hx Vision Problem, Other Sensory Impairments Neurological History: Denies: Hx Dementia, Hx Developmental Delay, Hx Migraine, Hx Nerve Disease, Hx Seizures, Hx Spinal Cord Injury, Hx Transient Ischemic Attacks (TIA) Psychiatric History: Denies: Hx Attention Deficit Hyperactivity Disorder, Hx Eating Disorder, Hx Panic Disorder, Hx Schizophrenia, Hx Bipolar Disorder, Hx of Violent Episodes Against Others - Cancer History Hx Chemotherapy: No Hx Radiation Therapy: No - Surgical History Surgery Procedure, Year, and Place: 1999 hysterectomy;. 2002 hiatal hernia repair and endoscopy for acid reflux. 2X c-sect in 1971 & 1974. Hx Anesthesia Reactions: No Infectious Disease History: No Infectious Disease History: Denies: Hx Clostridium Difficile, Hx Hepatitis, Hx of Known/Suspected MRSA, Hx Shingles, Hx Tuberculosis, Hx Known/Suspected VRE, Hx Known/Suspected VRSA, Traveled Outside the [place] in Last 30 Days - Family History Known Family History: Positive: Hypertension - mother and sister, Diabetes Family History: Sister wtih hypothyroid. Sister with Ovarian CA. Mother with colon CA. - Social History Alcohol Use: None Substance Use Type: Reports: None Smoking Status (MU): Former Smoker Type: Cigarettes Have You Smoked in the Last Year: No Review of Systems Negative: Fever Negative: Chest Pain Negative: Shortness Of Breath Positive: Abdominal Pain, Nausea. Negative: Diarrhea All Other Systems Reviewed And Are Negative: Yes Physical Exam - Summary Physical Exam Summary: Appearance: Well appearing, no pain distress Skin: warm, dry, reflects adequate perfusion Head/face: normal Eyes: EOMI, DEVIN ENT: normal Neck: supple, non-tender Respiratory: CTA, breath sounds present Cardiovascular: RRR, pulses symmetrical Abdomen: diffuse tenderness on the left side, soft Musculoskeletal: normal, strength/ROM intact Neuro: normal, sensory motor intact, A&Ox3 Triage Information Reviewed: Yes Vital Signs On Initial Exam: Initial Vitals Temp Pulse Resp BP Pulse Ox 98.7 F 65 24 154/80 98 11/22/18 15:36 11/22/18 15:36 11/22/18 15:36 11/22/18 15:36 11/22/18 15:36 Vital Signs Reviewed: Yes Diagnostics - Vital Signs Vital Signs Temp Pulse Resp BP Pulse Ox 11/22/18 15:36 98.7 F 65 24 154/80 98 - Laboratory Result Diagrams: 11/22/18 18:55 11/22/18 18:55 Lab Statement: Any lab studies that have been ordered have been reviewed, and results considered in the medical decision making process. - CT Abdomen/Pelvis CT CT Interpretation Completed By: Radiologist Summary of CT Findings: IMPRESSION: There are inflammaory changes noted surrouding the body and tail of the pancreas findings are compatible with acute pancreatitis. Dr. Chan has reviewed this report. - EKG 17:45 Cardiac Rate: NL - at 62 bpm EKG Rhythm: Sinus Rhythm Summary of EKG Findings: No acute changes. Re-Evaluation - Re-Evaluation First Eval Re-Evaluation Time: 20:29 Comment: Reviewed the lab and CT results with the pt. Discussed admission plan. Pt understands and agrees. Abdominal Pain Fem Course/Dx - Course Course Of Treatment: Pt is a 63 y/o female, with hx of pancreatitis, who presents with left sided abdominal pain since 14:00 today. She describes her pain from left side of her abd radiating to her umbilicus and similar to past admission for pancreatitis. Blood work, EKG, CT obtained. Lab work significant for WBC of 11.7, lipase of 2014. Abdomen/Pelvis CT shows there are inflammaory changes noted surrouding the body and tail of the pancreas findings are compatible with acute pancreatitis. Discussed the case with Dr. Stock, hospitalist, who accepted the pt for admission. - Diagnoses Differential Diagnosis: Positive: Diverticulitis, Pancreatitis, Renal Colic Provider Diagnoses: Acute pancreatitis - Provider Notifications Discussed Care Of Patient With: Shelli Stock - hospitalist Time Discussed With Above Provider: 20:26 Instructed by Provider To: Admit As Inpatient Discharge - Sign-Out/Discharge Documenting (check all that apply): Patient Departure - Admit to [facility] Patient Received Moderate/Deep Sedation with Procedure: No - Discharge Plan Condition: Stable Disposition: ADMITTED TO [facility] Referrals: Payam Pineda MD [Primary Care Provider] - - Billing Disposition and Condition Condition: STABLE Disposition: Admitted to [facility] - Attestation Statements Document Initiated by Scribe: Yes Documenting Scribe: Rosemarie Munoz Provider For Whom Scribe is Documenting (Include Credential): Delmar Chan MD Scribe Attestation: I, Rosemarie Munoz, scribed for Delmar Chan MD on 11/22/18 at 205. Scribe Documentation Reviewed: Yes Provider Attestation: The documentation as recorded by the scribeRosemarie accurately reflects the service I personally performed and the decisions made by me, Delmar Chan MD Status of Scribe Document: Viewed
[2018-11-22 18:29] LABS: Urine Appearance Cloudy; Urine Bacteria Absent (Absent); Urine Bilirubin Negative (Negative); Urine Blood Negative (Negative); Urine Color Amber; Urine Glucose Negative (Negative); Urine Ketones 1+ (Negative); Urine Nitrite Negative (Negative); Urine Protein Negative (Negative); Urine Red Blood Cell Absent (Absent); Urine Specific Gravity 1.021 (1.010-1.030); Urine Squamous Epithelial Cell Present (Absent); Urine Urobilinogen Negative (Negative); Urine White Blood Cell Trace(0-5/hpf) (Absent)
[2018-11-22 19:12] LABS: ABS Basophils 0.1 10^3/ul (0-0.2); ABS Eosinophils 0.1 10^3/ul (0-0.6); ABS Lymphocytes 1.2 10^3/ul (1.0-4.8); ABS Monocytes 0.7 10^3/ul (0-0.8); ABS Neutrophils 9.7 10^3/ul (1.5-7.7); ABS Nucleated RBC 0 10^3/ul; Eosinophil % 0.5 %; Hematocrit 41 % (33-41); Hemoglobin 13.4 g/dL (12.0-16.0); Lymphocyte % 10.7 %; Mean Corpuscular HGB Conc 33 g/dL (31-36); Mean Corpuscular Hemoglobin 28 pg (27-31); Mean Corpuscular Volume 86 fL (80-97); Mean Platelet Volume 7.4 fL (7.4-10.4); Nucleated Red Blood Cells % 0; Platelet Count 361 10^3/uL (150-450); Red Blood Count 4.74 10^6 /uL (3.70-4.87); Red Cell Distribution Width 15 % (10.5-15); White Blood Count 11.7 10^3/uL (3.5-10.8)
[2018-11-22 19:28] LABS: Activated Partial Thrombo Time 24.2 seconds (26.0-36.3); INR 1.02 (0.77-1.02)
[2018-11-22 19:30] LABS: Albumin 3.8 g/dL (3.2-5.2); Albumin/Globulin Ratio 1.4 (1-3); BUN/Creatinine Ratio 25.7 (8-20); C Reactive Protein 5.98 mg/L (<8.01); Calcium 8.7 mg/dL (8.6-10.3); EGFR African American 95.3 (>60); EGFR Non-African American 78.8 (>60); Globulin 2.8 g/dL (2-4); Potassium 4.2 mmol/L (3.5-5.0); Total Bilirubin 0.5 mg/dL (0.2-1.0); Total Protein 6.6 g/dL (6.4-8.9); Troponin I 0.01 ng/mL (<0.04)
[2018-11-22] MEDS ORDERED: Iohexol 300* (CONTRAST) 10 ML SDV IV ONE (19:32)
[2018-11-22] MEDS ORDERED: Acetaminophen TAB* 325 MG PO PRN (20:55)
[2018-11-22] MEDS ORDERED: Morphine 4 MG/ML VIAL (1 ml) 4 MG/ML VIAL IV PRN (20:55)
[2018-11-22] MEDS ORDERED: NS 0.9% 1000 ML** 1,000 ML IV SCH (21:00)
[2018-11-22] MEDS: Pantoprazole TAB * 40 MG TAB PO SCH (22:02)
[2018-11-22] MEDS: NS 0.9% 1000 ML** 1,000 ML IV SCH (22:56)
[2018-11-22] MEDS: Ondansetron INJ* 2 MG/ML VIAL IV PRN (22:57)
[2018-11-22] MEDS: Heparin VIAL(*) 5000 UNITS/ML VIAL (FIVE THOUSAND) SUBCUT SCH (23:06)
--- NOTE | 2018-11-23 01:06 | HP ---
CC: Dr. Pineda; Dr. Pacheco; Dr. Glass * HISTORY AND PHYSICAL: DATE OF ADMISSION: 11/22/18 PRIMARY CARE PROVIDER: Dr. Pineda. ATTENDING PHYSICIAN WHILE IN THE HOSPITAL: Dr. Shelli Link * (report dictated by Hilario Montes NP). CONSULTING SURGEON: Dr. Pacheco. CHIEF COMPLAINT: Left-sided abdominal pain. HISTORY OF PRESENT ILLNESS: Mrs. Rowell is a 63-year-old female patient who was just here a couple of weeks ago, was diagnosed with pancreatitis, cause was unclear. She was treated medically. She was discharged, was doing well, up until today when around 12 o'clock she had a salad with cottage cheese and some fruit, and she started developing about 2 hours afterwards significant left- sided pain again that started on her side and wrapped towards her epigastric area, described as an intense pain. She says it would wax and wane. She says that she started feeling nauseated. She left work, was hopeful that things would get better, but it felt like her previous bout of pancreatitis. Granted not as severe, but she was concerned nonetheless because it was very similar, so she decided to come into the ER today to be evaluated. She denied any vomiting. There has been no recent change in medications, except she is on Crestor now. There was reported history by her PCP in the past that her triglycerides have been as high as the 700 to 800 range. Her triglyceride last time she was here was 274 and she had IgG studies, which were negative. She does not consume alcohol. So, she came in today and it was found that her lipase was over [address] scan again with some biliary sludge. No stones , but it was also noted that she had inflammation of the pancreas. Because of this, we were asked to evaluate for admission. PAST MEDICAL HISTORY: Significant for: 1. Pancreatitis. 2. Hypertension. 3. Hypothyroidism. 4. GERD. 5. Hyperlipidemia. PAST SURGICAL HISTORY: 1. She has had x2. 2. Total abdominal hysterectomy with bilateral salpingo-oophorectomy. 3. She has has had a hiatal hernia repair. HOME MEDICATIONS: Include: 1. Rosuvastatin 10 mg daily. 2. MiraLAX 17 g p.o. daily. 3. Prilosec 20 mg p.o. b.i.d. 4. Fish oil 1000 mg p.o. daily. 5. Multivitamin 1 tablet daily. 6. Synthroid 75 mcg daily. 7. Hydrochlorothiazide 12.5 mg daily. 8. Zyrtec 10 mg p.o. daily. 9. Benazepril 30 mg daily. 10. Vitamin C 500 mg daily. ALLERGIES: To medications include none, but she is allergic to TAPE. FAMILY HISTORY: Mother had a history of hypertension, diabetes, and colon cancer. Father had a history of asthma. SOCIAL HISTORY: The patient is a former smoker. She does not drink alcohol. Surrogate decision maker is her . REVIEW OF SYSTEMS: There is no documented fever. She denies having any significant weight change. There is no double vision. She denied having any ear discharge. There was no rhinorrhea. No sore throat. No thyroid enlargement. Denied having any chest pain, no orthopnea, no nocturnal dyspnea. There was no abdominal pain. No nausea. No vomiting. No dysuria. No frequency. No seizure. No loss of consciousness. No pruritus and no skin ulcerations. Review of 14 systems completed and all others negative. PHYSICAL EXAMINATION GENERAL: At this time, Mrs. Rowell is a 63-year-old female patient. She appears to be well nourished, well developed. VITAL SIGNS: Blood pressure was 177/82 with a pulse of 69, respirations 18, O2 sat 96%, temperature was 98.7. HEENT: Head is atraumatic and normocephalic. Eyes: EOMs are intact. Sclerae anicteric and not pale. Throat: Oral mucosa appears to be moist. No oropharyngeal erythema. NECK: Supple. LUNGS: Clear to auscultation. No wheezes, rales, or rhonchi. HEART: Sounds S1, S2. She had a regular rate and rhythm. There were no murmurs, rubs, or gallops. ABDOMEN: Soft. There was tenderness in the left upper quadrant in the epigastric area, but it was soft and bowel sounds present. EXTREMITIES: Pulses were 2+ throughout. She is moving all 4 extremities with 5 /5 strength. NEUROLOGIC: She is awake. She is alert, oriented x3. Her tongue is midline. Bottling Line Attendant are equal. She had no gross focal deficits. SKIN: Her skin was intact. DIAGNOSTIC STUDIES/LAB DATA: Labs: WBC 11.7, RBC 4.74, hemoglobin 13.4, hematocrit 41, platelet count 361. INR 1.02, PTT is 24.2. Sodium 134, potassium 4.2, chloride of 102, bicarb of 28, BUN 19, creatinine 0.74, glucose 189, calcium 8.7. Total bili 0.7, AST 40, ALT 57, alk phos 101. Troponin 0.01. CRP of 5.98. Albumin of 3.8. Lipase 2014. Urine showed 1+ ketone, trace leukocyte esterase, presence of squamous epithelial cells. Abdominal and pelvis CT: There are inflammatory changes noted surrounding the body and tail of the pancreas, findings compatible with pancreatitis. Gallbladder: No stones, no ductal dilation, normal. EKG showed a normal sinus rhythm, rate of 62. No ST elevations or T-wave inversions were noted. Old medical records reviewed. ASSESSMENT AND PLAN: Mrs. Rowell is a 63-year-old female patient coming in to the ED today with complaints of abdominal discomfort and evaluation here in the emergency department found to have pancreatitis. She will be admitted under inpatient status for: 1. Pancreatitis. Again, etiology is unclear. This could be certainly biliary colic. She had previous scans that did show gallbladder sludge, none was reported today. Her liver enzymes are minimally bumped. Her bili is okay. Her alk phos previously was elevated. I did touch base with Dr. Pacheco. He will evaluate the patient tomorrow for possible laparoscopic cholecystectomy. The other consideration may be, and this would be up to GI; particularly Dr. Glass who is her commercial construction superintendent, considering doing an endoscopic ultrasound of the pancreas, but again I will defer that to their recommendations. We will trend her lipase for the time being. I will make her n.p.o. We will hydrate her and we will continue to follow her closely. We will check lipid panel again as well. 2. Hypertension. I am holding the hydrochlorothiazide, but I will continue her benazepril. 3. Hypothyroidism. Continue Synthroid. 4. Gastroesophageal reflux disease. Continue PPI therapy. 5. Hyperlipidemia. Continue statin therapy. 6. DVT prophylaxis. She is high risk and I will place her on heparin subcu. 7. Code status. She is a full code. 8. Fluids, electrolytes, and nutrition. Again, n.p.o. and she will have normal saline going at 125 cc an hour. TIME SPENT: Time spent on this admission was 60 minutes, greater than half the time was spent [id number] with the patient obtaining my history and physical, the other half time was spent going over the plan of care with the patient and implementing my plan of care. I did discuss the plan of care with my attending, Dr. Link; she is in agreement. HILARIO MONTES, DANO [id number]/[facility]PS #: [id number] ELAINE
[2018-11-23] MEDS ORDERED: Al Hydrox/Mg Hydrox/Simet LIQ* 30 ML UDC PO PRN (05:47)
[2018-11-23] MEDS: Heparin VIAL(*) 5000 UNITS/ML VIAL (FIVE THOUSAND) SUBCUT SCH ×3 (05:51→20:39)
[2018-11-23] MEDS: Ondansetron INJ* 2 MG/ML VIAL IV PRN (05:58)
[2018-11-23 06:06] LABS: ABS Basophils 0 10^3/ul (0-0.2); ABS Eosinophils 0.1 10^3/ul (0-0.6); ABS Lymphocytes 1.2 10^3/ul (1.0-4.8); ABS Monocytes 0.7 10^3/ul (0-0.8); ABS Neutrophils 8.6 10^3/ul (1.5-7.7); ABS Nucleated RBC 0 10^3/ul; Eosinophil % 0.7 %; Hematocrit 41 % (33-41); Hemoglobin 13.9 g/dL (12.0-16.0); Lymphocyte % 11.6 %; Mean Corpuscular HGB Conc 34 g/dL (31-36); Mean Corpuscular Hemoglobin 29 pg (27-31); Mean Corpuscular Volume 85 fL (80-97); Mean Platelet Volume 7.5 fL (7.4-10.4); Nucleated Red Blood Cells % 0.1; Platelet Count 361 10^3/uL (150-450); Red Blood Count 4.85 10^6 /uL (3.70-4.87); Red Cell Distribution Width 15 % (10.5-15); White Blood Count 10.6 10^3/uL (3.5-10.8)
[2018-11-23 06:20] LABS: INR 1.03 (0.77-1.02)
[2018-11-23 06:26] LABS: Albumin 3.4 g/dL (3.2-5.2); Albumin/Globulin Ratio 1.4 (1-3); BUN/Creatinine Ratio 29.1 (8-20); Calcium 8.4 mg/dL (8.6-10.3); EGFR African American 134.2 (>60); EGFR Non-African American 110.9 (>60); Globulin 2.5 g/dL (2-4); HDL Cholesterol 44.1 mg/dL; Potassium 3.9 mmol/L (3.5-5.0); Total Bilirubin 0.4 mg/dL (0.2-1.0); Total Protein 5.9 g/dL (6.4-8.9)
[2018-11-23] MEDS: NS 0.9% 1000 ML** 1,000 ML IV SCH ×3 (07:25→22:48)
[2018-11-23] MEDS: Levothyroxine TAB* 75 MCG TAB PO SCH (07:28)
[2018-11-23] MEDS ORDERED: PROCHLORPERAZINE INJ 5 MG/ML 2 ML VIAL IV PRN (07:35)
[2018-11-23] MEDS: Pantoprazole TAB * 40 MG TAB PO SCH ×2 (08:06→20:38)
[2018-11-23] MEDS: Atorvastatin* 20 MG TAB PO SCH (08:06)
[2018-11-23] MEDS: Lisinopril TAB* 10 MG PO SCH (08:06)
--- NOTE | 2018-11-23 10:43 | PN ---
Subjective Date of Service: 11/23/18 Interval History: Pt continues to have abdominal pain in the epigastric and left flank region; she rates pain as 4-5/10 when she lies still. She states that it increases with movement. She has not had pain medication since last night. She continues to be NPO with IVF. She had a BM yesterday and is urinating OK. Pt states that she was hospitalized for this recently. She states that she has had similar pain and circumstances over the years, which she has not sought medical attention for. Objective Active Medications: Acetaminophen (Tylenol Tab*) 650 mg PO Q4H PRN Al Hydrox/Mg Hydrox/Simethicone (Maalox Plus*) 30 ml PO Q6H PRN Atorvastatin Calcium (Lipitor*) 20 mg PO DAILY RON; Protocol Heparin Sodium (Porcine) (Heparin Vial(*)) 5,000 units SUBCUT Q8HR RON Sodium Chloride (Ns 0.9% 1000 Ml) 1,000 mls @ 125 mls/hr IV PER RATE RON Levothyroxine Sodium (Synthroid Tab*) 75 mcg PO DAILY@0600 RON Lisinopril (Prinivil Tab*) 30 mg PO DAILY RON Morphine Sulfate (Morphine 4 Mg/Ml Vial (1 Ml)) 4 mg IV Q4H PRN Ondansetron HCl (Zofran Inj*) 4 mg IV Q6H PRN Pantoprazole Sodium (Protonix Tab*) 40 mg PO BID RON Prochlorperazine Edisylate (Compazine Inj*) 5 mg IV Q6H PRN Vital Signs: Temp Pulse Resp BP Pulse Ox 98.2 F 65 16 154/73 93 11/23/18 07:34 11/23/18 07:34 11/23/18 08:00 11/23/18 07:34 11/23/18 07:34 Oxygen Devices in Use Now: None Appearance: Pt is asleep. She wakes easily. She appears tired, but is oriented. She is in no acute distress. Eyes: No Scleral Icterus, PERRLA Ears/Nose/Mouth/Throat: NL Teeth, Lips, Gums, Clear Oropharnyx, Mucous Membranes Moist Neck: NL Appearance and Movements; NL JVP, Trachea Midline Respiratory: Symmetrical Chest Expansion and Respiratory Effort, Clear to Auscultation Cardiovascular: NL Sounds; No Murmurs; No JVD, RRR, No Edema Abdominal: - - Bowel sounds hypoactive. TTP in RUQ and LUQ; nontender elsewhere. Negative Durbin's sign; negative Granda adrian [place]. Extremities: No Edema, No Clubbing, Cyanosis Neurological: Alert and Oriented x 3 Result Diagrams: 11/23/18 05:24 11/23/18 05:24 Assess/Plan/Problems-Billing Assessment: Pt is a 63 yof with PMHx pancreatitis, HTN, HLD, hypothyroid, GERD who presents with pancreatitis, unknown etiology. - Patient Problems (1) Pancreatitis Comment: -H/o pancreatitis, negative for IgG1-4, trig WNL, CT negative for gallstones, ductal dilation -Consulted Dr. Pacheco -Continue IVF, pain management, nausea medications (2) Diabetes Comment: -HA1C at 8.0 -Diabetic education -Consider Metformin or Lispro ss once PO started (3) Hypertension Comment: -Trending down since yesterday -Continue Lisinopril (4) Hyperlipidemia Comment: -Lipids WNL; trig 148 -Continue atorvastatin (5) GERD (gastroesophageal reflux disease) Comment: -Continue Pantoprazole (6) Hypothyroid Comment: -Continue Levothyroxine (7) DVT prophylaxis Comment: -Heparin (8) Full code status Status and Disposition: Inpatient. Discharge when stable.
[2018-11-23] MEDS ORDERED: Dextrose 50% Syringe 50 ML* 25 GM/50 ML SYRINGE IV PUSH PRN (10:58)
[2018-11-23] MEDS ORDERED: Insulin LISPRO* 1 UNITS UNIT SUBCUT SCH (11:30)
--- NOTE | 2018-11-23 17:20 | CONS ---
CC: Dr. Pineda; Dr. Johnny Glass * CONSULTATION REPORT: DATE OF CONSULT: 11/23/18 REFERRING PROVIDER: Hilario Montes NP, hospitalist REASON FOR CONSULTATION: Pancreatitis. HISTORY OF PRESENT ILLNESS: Bia Rowell is a 63-year-old woman who was admitted through the emergency room yesterday after she developed a left-sided back discomfort. She was noted to have discomfort developed after eating a salad with cottage cheese and some fruit and also caused nausea. Of note, she was recently admitted several weeks ago to [facility] also for an acute pancreatitis as documented by CT scan and chemically. In addition, she had an ultrasound at that time, which did not show gallstones, but there was concern for possible biliary sludge. She also has had a history of elevated cholesterol, but no hypertriglyceridemia and was restarted on Crestor. At that time, there was no discussion of cholecystectomy and she was seen in consultation with Dr. Johnny Glass. On this admission, once again, she underwent a second CT scan, which did show findings consistent with acute pancreatitis without evidence of necrosis or abscess. The gallbladder was unremarkable. The second gallbladder ultrasound done just this morning shows no stones, wall thickening or biliary sludge. There is no ductal dilation. Laboratory values showed a normal white blood cell count today. She was admitted with lipase of 2014, which now is down to 301. She had a total bilirubin of 0.5 with AST and ALT of 40 and 57, which have come down to 29 and 45 today. Alkaline phosphatase has been normal. C-reactive protein was also normal. She is feeling better today. In light of the concern for possible biliary sludge on the ultrasound done 2 weeks ago, but not seen on the ultrasound done today, surgical consultation was obtained today to discuss possible cholecystectomy. PAST MEDICAL HISTORY: 1. Pancreatitis. 2. Hypertension. 3. Hypothyroidism. 4. Gastroesophageal reflux disease. 5. Hyperlipidemia. PAST SURGICAL HISTORY: 1. section x2. 2. Total abdominal hysterectomy with salpingo-oophorectomy. 3. Laparoscopic hiatal hernia repair. 4. Reflux disease. MEDICINES: Include: 1. Rosuvastatin. 2. MiraLAX. 3. Prilosec. 4. Fish oil. 5. Multivitamin. 6. Synthroid. 7. Hydrochlorothiazide. 8. Zyrtec. 9. Benadryl. 10. Vitamin C. ALLERGIES: She has no known drug allergies, but she is allergic to TAPE. SOCIAL HISTORY: She is a former smoker. She does not drink alcohol. Surrogate decision maker is her . She did not drink significant amount of alcohol in the past. FAMILY HISTORY: Mother had a history of hypertension, diabetes, and colon cancer. Father with history of asthma. REVIEW OF SYSTEMS: She has had no documented fevers. She has had no hematemesis. Pulmonary: No wheezing or hemoptysis. GI: As per above. : No urgency or hematuria. Cerebrovascular: She has no dizziness or visual disturbances. PHYSICAL EXAMINATION: Temperature 98.2, pulse 65, blood pressure 154/73. In general, she is a well developed, overweight female, appears to be in no apparent distress. She is awake, alert, conversive, and quite pleasant. Her lungs were clear to auscultation with normal respiratory effort. Heart has regular rate and rhythm without murmurs, rubs, or gallops. Her abdomen was protuberant. She has well-healed laparoscopic upper abdominal incision without hernia. There is no umbilical hernia. She has diminished bowel sounds throughout. Her abdomen was soft and nondistended, however. There are no hernias. She had some mild tenderness in the epigastrium in the left upper quadrant, but no rebound, guarding, or rigidity. IMPRESSION: Acute pancreatitis. At present time, I am not completely convinced that the cause is biliary tract related. I reviewed the 2 ultrasounds done over the past several weeks with the third radiologist today and does not appear to be biliary sludge on either of the ultrasound. Certainly , there are no stones or evidence of other biliary tract disease. She has a history of hypercholesterolemia and also states that her triglycerides have been elevated in the past. She stopped taking cholesterol medicine 2 years ago , but it was recently started after her initial admission. She also takes hydrochlorothiazide but has been on this for many years and this also can be a cause of the acute pancreatitis. At this point, I would recommend continued supportive care for her acute pancreatitis. Decision needs to be made as to proceeding with cholecystectomy. I recommend a Gastroenterology consult for another opinion or if there is any other workup such as collection of biliary crystals from bile drainage as to be more certain regarding the possible biliary cause of her pancreatitis before proceeding with a laparoscopic cholecystectomy with its inherent risks. We will follow the patient closely with you. I discussed all the above with Venus Mcwilliams, the hospitalist taking care of the patient today. [id number]/[facility] #: [id number] MTDBg
[2018-11-24 05:05] LABS: ABS Basophils 0 10^3/ul (0-0.2); ABS Eosinophils 0.2 10^3/ul (0-0.6); ABS Lymphocytes 0.9 10^3/ul (1.0-4.8); ABS Monocytes 1.1 10^3/ul (0-0.8); ABS Neutrophils 8.8 10^3/ul (1.5-7.7); ABS Nucleated RBC 0 10^3/ul; Eosinophil % 1.8 %; Hematocrit 36 % (33-41); Hemoglobin 11.9 g/dL (12.0-16.0); Lymphocyte % 7.9 %; Mean Corpuscular HGB Conc 33 g/dL (31-36); Mean Corpuscular Hemoglobin 28 pg (27-31); Mean Corpuscular Volume 86 fL (80-97); Mean Platelet Volume 7.6 fL (7.4-10.4); Nucleated Red Blood Cells % 0.1; Platelet Count 275 10^3/uL (150-450); Red Blood Count 4.24 10^6 /uL (3.70-4.87); Red Cell Distribution Width 15 % (10.5-15); White Blood Count 11.1 10^3/uL (3.5-10.8)
[2018-11-24 05:17] LABS: Albumin 2.9 g/dL (3.2-5.2); Albumin/Globulin Ratio 1.3 (1-3); BUN/Creatinine Ratio 14.8 (8-20); Calcium 7.8 mg/dL (8.6-10.3); EGFR African American 137.1 (>60); EGFR Non-African American 113.3 (>60); Globulin 2.3 g/dL (2-4); Potassium 3.9 mmol/L (3.5-5.0); Total Bilirubin 0.7 mg/dL (0.2-1.0); Total Protein 5.2 g/dL (6.4-8.9)
[2018-11-24] MEDS: NS 0.9% 1000 ML** 1,000 ML IV SCH ×2 (05:19→11:54)
[2018-11-24] MEDS: Heparin VIAL(*) 5000 UNITS/ML VIAL (FIVE THOUSAND) SUBCUT SCH ×3 (05:20→22:28)
[2018-11-24] MEDS: Levothyroxine TAB* 75 MCG TAB PO SCH (05:25)
[2018-11-24] MEDS: Atorvastatin* 20 MG TAB PO SCH (07:56)
[2018-11-24] MEDS: Pantoprazole TAB * 40 MG TAB PO SCH ×2 (07:56→22:26)
[2018-11-24] MEDS: Lisinopril TAB* 10 MG PO SCH (07:56)
--- NOTE | 2018-11-24 10:28 | PN ---
Progress Note - Progress Note Date of Service: 11/24/18 Note: She has "gas pain" in lower abdomen/umbilical region to left side. Passing some flatus. N but no V. Vital Signs Temp 99.8 F 11/23/18 23:00 Pulse 83 11/23/18 23:00 Resp 16 11/23/18 23:00 BP 157/53 11/23/18 23:00 Pulse Ox 94 11/23/18 23:00 Gen: obese; NAD; awake/alert Abd: lower midline scar; distended; +BS; mild to moderate tenderness to palpation diffusely, worst in epigastrium. no guarding. Intake & Output 11/23/18 11/24/18 11/24/18 18:59 06:59 18:59 Intake Total 1800 3042 Output Total 460 Balance 1800 2582 Intake: IV Fluids 1800 3042 NS (0.9%) 1800 3042 Oral 0 0 Output: Urine 460 Other: Estimated Void Medium Date of Last Bowel unknown Movement # Bowel Movements 0 0 # Voids 5 Laboratory Results - last 24 hr 11/23/18 11/24/18 11/24/18 11:35 04:41 04:41 WBC 11.1 H RBC 4.24 Hgb 11.9 L Hct 36 MCV 86 MCH 28 MCHC 33 RDW 15 Plt Count 275 MPV 7.6 Neut % (Auto) 79.8 Lymph % (Auto) 7.9 Mcleod % (Auto) 10.2 Eos % (Auto) 1.8 Baso % (Auto) 0.3 Absolute Neuts (auto) 8.8 H Absolute Lymphs (auto) 0.9 L Absolute Monos (auto) 1.1 H Absolute Eos (auto) 0.2 Absolute Basos (auto) 0 Absolute Nucleated RBC 0 Nucleated RBC % 0.1 Sodium 134 L Potassium 3.9 Chloride 105 Carbon Dioxide 23 Anion Gap 6 BUN 8 Creatinine 0.54 Est GFR ( Amer) 137.1 Est GFR (Non-Af Amer) 113.3 BUN/Creatinine Ratio 14.8 Glucose 155 H POC Glucose (mg/dL) 159 H Calcium 7.8 L Total Bilirubin 0.70 AST 17 ALT 30 Alkaline Phosphatase 84 Total Protein 5.2 L Albumin 2.9 L Globulin 2.3 Albumin/Globulin Ratio 1.3 AP: Acute pancreatitis, second episode in 1 month; resolving. Not felt to be of biliary etiology after review of imaging. Continue medical management. GI f/u. No plan for surgery at this time. D/w patient.
--- NOTE | 2018-11-24 11:28 | PN ---
Subjective Date of Service: 11/24/18 Interval History: Pt noted to have low-grade fever and slight leukocytosis overnight. She denies cough, urinary retention or burning. She has increased urinary output, but is receiving large doses of IVF for pancreatitis. She states that she has not had any nausea recently; last dose of anti-nausea medication was Monday a.m. She continues to have epigastric pain that she describes as a "knot" and "gassy/ crampy." She has not asked for morphine in >24hours. Objective Active Medications: Acetaminophen (Tylenol Tab*) 650 mg PO Q4H PRN Al Hydrox/Mg Hydrox/Simethicone (Maalox Plus*) 30 ml PO Q6H PRN Atorvastatin Calcium (Lipitor*) 20 mg PO DAILY RON; Protocol Heparin Sodium (Porcine) (Heparin Vial(*)) 5,000 units SUBCUT Q8HR RON Sodium Chloride (Ns 0.9% 1000 Ml) 1,000 mls @ 150 mls/hr IV PER RATE RON Levothyroxine Sodium (Synthroid Tab*) 75 mcg PO DAILY@0600 RON Lisinopril (Prinivil Tab*) 30 mg PO DAILY RON Morphine Sulfate (Morphine 4 Mg/Ml Vial (1 Ml)) 4 mg IV Q4H PRN Ondansetron HCl (Zofran Inj*) 4 mg IV Q6H PRN Pantoprazole Sodium (Protonix Tab*) 40 mg PO BID RON Prochlorperazine Edisylate (Compazine Inj*) 5 mg IV Q6H PRN Vital Signs: Temp Pulse Resp BP Pulse Ox 99.0 F 80 14 141/61 94 11/24/18 15:31 11/24/18 15:31 11/24/18 15:31 11/24/18 15:31 11/24/18 15:31 Oxygen Devices in Use Now: None Appearance: Pt is laying in bed. She appears somewhat uncomfortable, but is in no acute distress. Eyes: No Scleral Icterus, PERRLA Ears/Nose/Mouth/Throat: NL Teeth, Lips, Gums, Clear Oropharnyx, - - Dry mucous membranes Neck: NL Appearance and Movements; NL JVP, Trachea Midline Respiratory: Symmetrical Chest Expansion and Respiratory Effort, Clear to Auscultation Cardiovascular: NL Sounds; No Murmurs; No JVD, RRR, No Edema Abdominal: No Hepatosplenomegaly, - - LUQ, epigastric, and RUQ tenderness. Bowel sounds in all quadrants. Lymphatic: No Cervical Adenopathy Extremities: No Clubbing, Cyanosis, - - Slight UE edema Neurological: Alert and Oriented x 3 Result Diagrams: 11/24/18 04:41 11/24/18 04:41 Microbiology and Other Data: Microbiology 11/22/18 17:26 Urine Culture - Final Urine Assess/Plan/Problems-Billing Assessment: Pt is a 63 yof with PMHx pancreatitis, HTN, HLD, hypothyroid, GERD who presents with pancreatitis, unknown etiology. - Patient Problems (1) Pancreatitis Comment: -H/o pancreatitis, negative for IgG1-4, trig WNL, CT negative for gallstones, ductal dilation -Consulted GI, who recommend continued supportive care and surgery consult -Consulted surgery who recommend continued conservative treatment, in light of no evidence for gallstones, biliary dysfunction, and follow up with GI outpatient -Continue IVF, pain management, nausea medications (2) Diabetes Comment: -HA1C at 8.0 -Diabetic education -Consider Metformin or Lispro ss once PO started (3) Hypertension Comment: -Trending down since yesterday -Continue Lisinopril (4) Hyperlipidemia Comment: -Lipids WNL; trig 148 -Continue atorvastatin (5) GERD (gastroesophageal reflux disease) Comment: -Continue Pantoprazole (6) Hypothyroid Comment: -Continue Levothyroxine (7) DVT prophylaxis Comment: -Heparin (8) Full code status Status and Disposition: Inpatient. Discharge when stable.
[2018-11-24] MEDS ORDERED: NS 0.9% 1000 ML** 1,000 ML IV SCH (17:26)
--- NOTE | 2018-11-24 20:26 | CONS ---
CONSULTATION REPORT: DATE OF CONSULT: 11/24/18 REQUESTING PHYSICIAN: Hilario Montes NP INDICATION: Pancreatitis. NARRATIVE: Ms. Rowell is a very pleasant 63-year-old female, who had her first episode of pancreati tis few weeks ago. She was diagnosed with idiopathic pancreatitis. She was doing well up until yest afternoon she was feeling great and then all of a sudden after eating some cottage cheese, she developed pain in the same location located on the left side. It went into her epigastrium and felt like just the pain she had before. She states that she did not wait around as she did last time and she came to the emergency room. In the emergency room, she was found to have elevated amylase and li pase and a CT consistent with pancreatitis. She was admitted to the hospital. Now, she is feeling b olu. She has been n.p.o. with IV fluids. She states that she feels at least 50% better at this ti me. She denies any abdominal trauma. She denies any new medications. Her lisinopril, she has been on for greater than 20 years. She denies any alcohol. No family history of pancreatitis. No sick c ontacts. PAST MEDICAL HISTORY: Significant for history of idiopathic pancreatitis, hypertension, GERD, hyperl ipidemia, and hypothyroid. PAST SURGICAL HISTORY: Includes , hysterectomy, hiatal hernia repair. MEDICATIONS AT HOME: Include: 1. Vitamin C. 2. Benazepril. 3. Zyrtec. 4. Hydrochlorothiazide. 5. Synthroid 75 mcg. 6. Fish oil. 7. Prilosec. 8. MiraLAX. 9. Rosuvastatin. ALLERGIES: None. FAMILY HISTORY: Hypertension, colon cancer, diabetes, asthma. SOCIAL HISTORY: She quit smoking many years ago. She denies any alcohol. REVIEW OF SYSTEMS: Twelve systems were reviewed and other than that mentioned in the HPI were unrema rkable. PHYSICAL EXAM: Temperature is 98.5, blood pressure is 145/65, pulse is 82, respiratory rate of 16, O 2 sat is 94%. General: Well-appearing female, in no apparent distress, alert, oriented, pleasant, f luent. HEENT: Mucous membranes are moist without lesions, ulcers, or exudates. Neck is supple. Tr achea is midline. Head is normocephalic, atraumatic. Heart: Regular rate and rhythm. No murmurs, r ubs, or gallops. Lungs: Clear to auscultation bilaterally. No wheezes, rales, or rhonchi. Abdomen is obese. Positive bowel sounds. Soft, tender throughout. No rebound. No guarding. No masses wer e felt. Skin is warm and dry. Lymph: No supraclavicular or cervical lymphadenopathy. DIAGNOSTIC STUDIES/LAB DATA: Workup today included an abdominal CT, which revealed inflammatory trevizo ges surrounding the body and tail of the pancreas compatible with acute pancreatitis. She also had a gallbladder ultrasound, which revealed no cholelithiasis and no sludge. Labs of note, white count is 11.1, hemoglobin is 11.9, platelets of 275. INR is 1.03. Sodium is 134 , glucose is 155, calcium of 7.8. Bilirubin is 0.7, AST is 17, ALT is 30, alk phos is 84. Lipase wa s 2013, it fell to 301. Her triglycerides are 148. She also had a recent IgG4 that was 25 and withi n the normal range. ASSESSMENT AND PLAN: A pleasant 63-year-old female admitted with idiopathic pancreatitis of formerly [facility]. No clear etiology exists for her pancreatitis. It does not appear to be autoimmune. I doub t that it is any of her medications, her blood pressure pill namely her JAMES inhibitor she has been on for greater than 20 years. She denies any nonsteroidals. No injury, no trauma. She denies any alc ohol. No stones. It could be viral, but 2 times would be a little unusual. It could be an anatomic al abnormality. The patient is improving at this point. Given the fact that she is improving and yessenia has now had 2 episodes that are of unclear etiology, I think this would warrant an endoscopic ultra sound. Unfortunately, we cannot perform that here. I think we can discharge her and then arrange fo r an endoscopic ultrasound as an outpatient. [id number]/[facility] #: [id number]
[2018-11-25] MEDS: Heparin VIAL(*) 5000 UNITS/ML VIAL (FIVE THOUSAND) SUBCUT SCH ×2 (05:32→12:33)
[2018-11-25] MEDS: Levothyroxine TAB* 75 MCG TAB PO SCH (05:36)
[2018-11-25] MEDS: Atorvastatin* 20 MG TAB PO SCH (08:02)
[2018-11-25] MEDS: Pantoprazole TAB * 40 MG TAB PO SCH (08:02)
[2018-11-25] MEDS: Lisinopril TAB* 10 MG PO SCH (08:02)
[2018-11-25 08:19] LABS: ABS Basophils 0 10^3/ul (0-0.2); ABS Eosinophils 0.3 10^3/ul (0-0.6); ABS Lymphocytes 1.1 10^3/ul (1.0-4.8); ABS Monocytes 0.9 10^3/ul (0-0.8); ABS Neutrophils 7.6 10^3/ul (1.5-7.7); ABS Nucleated RBC 0 10^3/ul; Eosinophil % 2.7 %; Hematocrit 34 % (33-41); Hemoglobin 11.4 g/dL (12.0-16.0); Lymphocyte % 10.9 %; Mean Corpuscular HGB Conc 33 g/dL (31-36); Mean Corpuscular Hemoglobin 29 pg (27-31); Mean Corpuscular Volume 86 fL (80-97); Mean Platelet Volume 7.5 fL (7.4-10.4); Nucleated Red Blood Cells % 0.1; Platelet Count 265 10^3/uL (150-450); Red Blood Count 4.01 10^6 /uL (3.70-4.87); Red Cell Distribution Width 15 % (10.5-15); White Blood Count 9.9 10^3/uL (3.5-10.8)
[2018-11-25 08:36] LABS: Calcium 8.1 mg/dL (8.6-10.3); EGFR African American 160.9 (>60); Potassium 3.5 mmol/L (3.5-5.0)
--- NOTE | 2018-11-25 08:43 | PN ---
Subjective Date of Service: 11/25/18 Objective Active Medications: Acetaminophen (Tylenol Tab*) 650 mg PO Q4H PRN PRN Reason: FEVER/PAIN Last Admin: 11/25/18 05:43 Dose: 650 mg Al Hydrox/Mg Hydrox/Simethicone (Maalox Plus*) 30 ml PO Q6H PRN PRN Reason: INDIGESTION Last Admin: 11/23/18 05:58 Dose: 30 ml Atorvastatin Calcium (Lipitor*) 20 mg PO DAILY [facility]; Protocol Last Admin: 11/25/18 08:02 Dose: 20 mg Heparin Sodium (Porcine) (Heparin Vial(*)) 5,000 units SUBCUT Q8HR [facility] Last Admin: 11/25/18 05:32 Dose: Not Given Sodium Chloride (Ns 0.9% 1000 Ml) 1,000 mls @ 100 mls/hr IV PER RATE [facility] Last Admin: 11/24/18 18:52 Dose: 100 mls/hr Levothyroxine Sodium (Synthroid Tab*) 75 mcg PO DAILY@0600 [facility] Last Admin: 11/25/18 05:36 Dose: 75 mcg Lisinopril (Prinivil Tab*) 30 mg PO DAILY [facility] Last Admin: 11/25/18 08:02 Dose: 30 mg Morphine Sulfate (Morphine 4 Mg/Ml Vial (1 Ml)) 4 mg IV Q4H PRN PRN Reason: PAIN Last Admin: 11/22/18 23:10 Dose: 4 mg Ondansetron HCl (Zofran Inj*) 4 mg IV Q6H PRN PRN Reason: NAUSEA Last Admin: 11/23/18 05:58 Dose: 4 mg Pantoprazole Sodium (Protonix Tab*) 40 mg PO BID [facility] Last Admin: 11/25/18 08:02 Dose: 40 mg Prochlorperazine Edisylate (Compazine Inj*) 5 mg IV Q6H PRN PRN Reason: NAUSEA/VOMITING Last Admin: 11/23/18 08:03 Dose: 5 mg Vital Signs - 8 hr 11/25/18 11/25/18 03:14 07:49 Temperature 98.7 F 97.7 F Pulse Rate 67 66 Respiratory 18 18 Rate Blood Pressure 146/64 139/64 (mmHg) O2 Sat by Pulse 94 94 Oximetry Oxygen Devices in Use Now: None Result Diagrams: 11/25/18 07:56 11/25/18 07:56 Microbiology and Other Data: Microbiology 11/22/18 17:26 Urine Culture - Final Urine Assess/Plan/Problems-Billing Assessment: Pt is a 63 yof with PMHx pancreatitis, HTN, HLD, hypothyroid, GERD who presents with pancreatitis, unknown etiology. - Patient Problems (1) Pancreatitis Comment: -H/o pancreatitis, negative for IgG1-4, trig WNL, CT negative for gallstones, ductal dilation -Consulted GI, who recommend continued supportive care and surgery consult -Consulted surgery who recommend continued conservative treatment, in light of no evidence for gallstones, biliary dysfunction, and follow up with GI outpatient -Continue IVF, pain management, nausea medications (2) Diabetes Comment: -HA1C at 8.0 -Diabetic education -Consider Metformin or Lispro ss once PO started (3) Hypertension Comment: -Trending down since yesterday -Continue Lisinopril (4) Hyperlipidemia Comment: -Lipids WNL; trig 148 -Continue atorvastatin (5) GERD (gastroesophageal reflux disease) Comment: -Continue Pantoprazole (6) Hypothyroid Comment: -Continue Levothyroxine (7) DVT prophylaxis Comment: -Heparin (8) Full code status Status and Disposition: Inpatient. Discharge when stable.
[2018-11-25] MEDS ORDERED: Senna TAB PO PRN (08:44)
[2018-11-25] MEDS ORDERED: NS 0.9% 1000 ML** 1,000 ML IV SCH (08:46)
[2018-11-25] MEDS ORDERED: Magnesium Hydroxide LIQ* 30 ML UDC PO SCH (09:00)
[2018-11-25 14:09] LABS: Hematocrit 38 % (33-41); Hemoglobin 12.2 g/dL (12.0-16.0)
[2018-11-25 15:29] VITALS: BP 128/64
--- NOTE | 2018-11-26 01:03 | DS ---
CC: Payam Pineda MD; Neil Griffiths MD * DISCHARGE SUMMARY: DATE OF ADMISSION: 11/22/18 DATE OF DISCHARGE: 11/25/18 PRIMARY CARE PROVIDER: Payam Pineda MD ROUGH RICE GRADER: Neil Griffiths MD ATTENDING PHYSICIAN: Dr. Roman * (dictated by JESSE Hilliard) PRIMARY DIAGNOSES: 1. Pancreatitis. 2. New-onset diabetes mellitus. SECONDARY DIAGNOSES: 1. Pancreatitis. 2. Hypertension. 3. Hypothyroidism. 4. Hyperlipidemia. 5. Gastroesophageal reflux disease. STUDIES WHILE IN THE HOSPITAL: Abdomen/pelvis CT on 11/22/18, impression: There are inflammatory changes noted surrounding the body and tail of the pancreas. Findings are compatible with acute pancreatitis. Gallbladder ultrasound on 11/23/18, impression, no cholelithiasis. DISCHARGE MEDICATIONS: Home Medications: 1. Rosuvastatin 10 mg p.o. daily. 2. Polyethylene glycol 17 g p.o. daily. 3. Omeprazole 20 mg p.o. b.i.d. 4. Fish oil 1000 mg softgel p.o. daily. 5. Multivitamin 1 tab p.o. daily. 6. Levothyroxine 75 mcg p.o. daily. 7. Hydrochlorothiazide 12.5 mg p.o. daily. 8. Cetirizine 10 mg p.o. daily. 9. Benazepril HCL 30 mg p.o. daily. 10. Ascorbic acid 500 mg p.o. daily. HISTORY OF PRESENT ILLNESS/HOSPITAL COURSE: Ms. Rowell is a 63-year-old female with a past medical history of pancreatitis approximately 3 weeks ago, who presented to the ER on 11/22 with abdominal pain. She was discharged approximately 3 weeks ago with a diagnosis of pancreatitis, etiology unknown and was discharged in good health. She states that she started developing left upper quadrant pain after eating on the afternoon of presentation. She states that the pain was on the left upper quadrant and epigastric area and was intermittent in nature. She complained of nausea and vomiting. She then presented to the ER. Past workup for pancreatitis included a lipid level with triglycerides at 274 on previous admission and triglycerides of 148, negative IgG studies, and negative for alcohol consumptions. While in the ER, the patient received a full workup, which revealed a lipase of 2014 and acute pancreatitis on CT. The patient continues to deny recent use of alcohol. Ultrasound is negative for cholelithiasis. Hospitalist team was asked to assess the patient for admission and she was admitted. While in the hospital, the patient was treated with aggressive fluid resuscitation as well as management of pain and nausea management. She was n.p.o. for most of her stay. Her abdominal pain slowly decreased in intensity. She required treatment with morphine initially, but has not required it in over 48 hours. It is also noted that the patient has not required nausea medications in over 24 hours. Throughout the hospital stay, the patient's lipase slowly trended downward. On the day of discharge, her lipase was 25. On the day prior to discharge, her liver function tests were all within normal limits. It is noted that the patient had an elevated hemoglobin A1c of 8.0 on admission. We discussed this and it was recommended that she start metformin. She is disinterested in starting the medication at this time and would like to defer to her primary care physician regarding management. During her stay, her hemoglobin was noted to be slightly decreased. This was thought to be due to treatment of pancreatitis with large volumes of IV fluids. On the day of discharge, the patient's IV fluids were discontinued, and hemoglobin and hematocrit were reassessed and were both within normal limits. On the day of discharge, she was advanced to a low-residue, low-fat, soft diet that she tolerated for both breakfast and lunch. On the day of discharge, the patient denies nausea or vomiting. She continues to have a small amount of occasional abdominal pain, which she describes as gassy and crampy and attributes to gas. She states that this pain is located in the epigastric area. She denies bruising on the abdominal area throughout this bout of pancreatitis. She denies chest pain, shortness of breath, or pain in the calves. She has not had a bowel movement since when she arrived and started treatment and NPO. She continues to pass gas. She was given bowel medications, and is eager to be discharged to home. Ms. Rowell is stable for discharge. Temperature 98.0 oral, heart rate 62, respiratory rate 16, oxygen saturation 97%, blood pressure 128/64. PHYSICAL EXAMINATION: General: Ms. Rowell is a well-developed, well-nourished , obese white woman who is sitting up in bed. She is in no acute distress. She appears well. HEENT: [place] are grossly intact. Pupils are equally round and reactive to light. Extraocular movements are intact. Sclerae are without icterus. Hearing is grossly intact. Oral mucous membranes are moist and without lesions. Pharynx is clear. Neck with full range of motion. The thyroid is not palpable. The trachea is at midline. There is no lymphadenopathy. Cardiovascular: Regular rate and rhythm. S1, S2 are present. There are no murmurs, rubs, clicks or gallops. There is no JVD. Respiratory: Symmetrical chest expansion with no use of accessory muscles. Lungs are clear to auscultation. There are no rhonchi, wheezes, or rales. Abdomen is obese. Bowel sounds are normoactive throughout the abdomen. The abdomen is soft. There is a small amount of epigastric tenderness. There is no hepatosplenomegaly. No [place] or Granda Kelly signs. Musculo-skeletal Exam: Full range of motion with no pain or deformities. Extremities: Skin is warm and smooth bilaterally. There is no edema, clubbing or cyanosis. Radial and pedal pulses are palpable. Neuro: The patient is awake. She is alert and oriented x3. Cranial nerves are grossly intact. She is able to move all of her extremities. She has a steady gait with no impairment. DISCHARGE PLAN: Ms. Rowell will be discharged home. ACTIVITY: As tolerated. DIET: Low-residue, low-fat soft diet; advance slowly and as tolerated. MEDICATIONS: As above. EDUCATION: 1. Follow up with primary care provider in 4 to 7 days. Discussed recent hospitalization and hemoglobin A1c of 8.0. 2. Follow up with GI for referral for outpatient endoscopic ultrasound; Dr. Griffiths's office will call the patient. 3. Return to the ER or nearest hospital if she experienced any worsening of symptoms, shortness of breath, lightheadedness, dizziness, chest discomfort, high fevers, chills, night sweats, loss of consciousness, or any other worrisome signs or symptoms. This is a summarized report of a complex medical history and hospital stay. For further details, please see the entire medical record. TIME SPENT: Approximately 35 minutes were spent on this discharge; greater than half of that time was spent [id number] with the patient discussing discharge plans and instructions. JESSE VINCENT [id number]/[facility] #: [id number] [facility]Bg
== END 2018-11-25 16:59 | disposition home or self-care (01) | DRG 282 ==
LOC: ED 15:24 → MED 20:52
PROVIDERS: ADMIT Internal Medicine; ATTEND Internal Medicine
DX: K85.00 Idiopathic acute pancreatitis without necrosis or infection (principal); E78.00 Pure hypercholesterolemia, unspecified; I10 Essential (primary) hypertension; K21.9 Gastro-esophageal reflux disease without esophagitis; M19.90 Unspecified osteoarthritis, unspecified site; E11.9 Type 2 diabetes mellitus without complications; E66.9 Obesity, unspecified; E78.5 Hyperlipidemia, unspecified; E03.9 Hypothyroidism, unspecified; Z90.710 Acquired absence of both cervix and uterus; Z80.0 Family history of malignant neoplasm of digestive organs; Z80.41 Family history of malignant neoplasm of ovary; Z88.8 Allergy status to other drugs, medicaments and biological substances; Z82.49 Family history of ischemic heart disease and other diseases of the circulatory system; Z83.3 Family history of diabetes mellitus; Z87.891 Personal history of nicotine dependence; Z83.49 Family history of other endocrine, nutritional and metabolic diseases; Z90.722 Acquired absence of ovaries, bilateral; Z82.5 Family history of asthma and other chronic lower respiratory diseases; Z68.36 Body mass index [BMI] 36.0-36.9, adult
CPT/HCPCS: 36415; 74177; 76705; 80048; 80053; 80061; 81003; 81015; 83036; 83690; 84484; 85014; 85018; 85025; 85610; 85730; 86140; 87086; 93005; 99283; A9270-GY; J0780; J1644; J2270; J2405; Q9967

== ENCOUNTER → 2019-03-08 08:30 | Day surgery (SDC) | payer BC, MEDICARE ==
[~2019-03-08 08:30] MED LIST: Acetaminophen TAB* 325 MG PO PRN; Buffered Lidocaine 1% SYRIN* 1 ML/SYRINGE INTRADERM ONE; Bupivacaine 0.5% W/EPI SDV* 30 ML VIAL ONE; Dexamethasone IV* 4 MG/ML 1 ML (4 MG) ONE; DiMENhydriNATE IV* 50 MG/ML VIAL IV PUSH PRN; DiMENhydriNATE IV* 50 MG/ML VIAL ONE; EPINEPHRINE 1 MG/ML 1 ML VIAL ONE; Famotidine IV* 10 MG/ML 2 ML (20 mg) IV ONE; Famotidine IV* 10 MG/ML 2 ML (20 mg) ONE; HYDROmorphone INJ* 0.5 MG/0.5 ML SYRINGE ONE; Ketorolac INJ* 30 MG/ML 1 ML VIAL ONE; Lactated Ringers 1000 ML Bag* 1,000 ML IV SCH; Midazolam* 1 MG/ML 5 ML VIAL (5 MG) ONE; Naloxone* 0.4 MG/ML 1 ML VIAL IV PRN; Ondansetron INJ* 2 MG/ML VIAL ONE; Propofol* 10 MG/ML 20 ML BTL ONE; ceFAZolin 2 GM in NS PREMIX(*) 2 GM/100 ML BAG IVPB ONE; fentaNYL* 50 MCG/ML 2 ML VIAL (100 MCG VIAL) ONE; hydrALAZINE IV* 20 MG/ML VIAL ONE; methylPREDNISolone ACETATE 40* 40 MG/ML 1 ML VIAL ONE; methylPREDNISolone ACETATE 80* 80 MG/ML 1 ML VIAL ONE; oxyCODONE TAB* 5 MG TAB ONE; oxyCODONE TAB* 5 MG TAB PO PRN
[2019-03-08] MEDS: HYDROmorphone INJ1* 1 MG/ML SYRINGE IV PRN ×5 (11:40→12:00)
[2019-03-08 12:58] VITALS: BP 154/65
--- NOTE | 2019-03-09 23:24 | OP ---
OPERATIVE REPORT: DATE OF OPERATION: 03/08/19 DATE OF : 51 SURGEON: Ward Bui MD CLINICAL SPECIALIST VASCULAR: JESSE Palacios A physician law office assistant was required for the length of the procedure for assistance with the patient positioning, knee manipulation, instrumentation, and closure. ANESTHESIOLOGIST: Dr. Kym Olivas. ANESTHESIA: General anesthesia, local anesthesia with 20 cc of Marcaine 0.5% with epinephrine. PRE-OP DIAGNOSES: 1. Left knee medial meniscus tear with likely displaced fragment. 2. Left knee mild osteoarthritis. POST-OP DIAGNOSES: 1. Left knee medial meniscus tear with small displaced fragments. 2. Left knee osteoarthritis. OPERATIVE PROCEDURE: 1. Left knee arthroscopic partial medial meniscectomy. 2. Left knee arthroscopic very limited chondroplasty, medial femoral condyle. 3. Injection, major joint, left knee, with cortisone. ANTIBIOTICS: Ancef 2 g IV. IV FLUIDS: 800 cc crystalloid. TOURNIQUET TIME: 23 minutes at 300 mmHg, left thigh tourniquet. SKIN TO SKIN TIME: 18 minutes. ARTHROSCOPIC FLUID UTILIZED: Not recorded by me. SPECIMEN: None. IMPLANTS: None. COMPLICATIONS: None. ESTIMATED BLOOD LOSS: Minimal. INDICATIONS FOR PROCEDURE: The patient is a 63-year-old woman who developed left knee pain in May 2018. Pain, swelling and stiffness. The patient failed to respond adequately to a full spectrum of non-operative management. Despite some signs of osteoarthritis in that knee, minimal, the patient appeared by MRI to have a fragment of meniscus displaced up into the intercondylar notch. Therefore, surgery was thought to be of benefit. Discussed risks and potential complications of surgery. Agreed to go forward with surgery. DESCRIPTION OF PROCEDURE: In preoperative holding, the patient signed a written consent. Operative extremity was marked in preoperative holding. The patient was taken back to the operating room and placed supine on the operating room table. Sedated and LMA was placed. A tourniquet was placed around the left proximal thigh. The left distal thigh was placed in a circumferential thigh painter. Table was elevated and the foot of the table was dropped. The left lower extremity was prepped and draped. Surgical time-out was performed. Esmarch was applied and tourniquet was elevated to 30 mmHg. I made a standard anterolateral knee arthroscopy incision. Arthroscope entered the knee. Diagnostic arthroscopy started. In the patellofemoral compartment, I was surprised immediately to see a significant level of synovitis. Soon after that, I noted a significant amount of degenerative change, grade 2 to 3 on the undersurface of the patella which was more advanced than preoperative imaging had revealed. I dropped down to the medial compartment. Some clear tearing evident in the posterior horn of the medial meniscus. However, there was also articular cartilage injury, grade 2 to 3 on the medial femoral condyle. This was more present medial than the central in the medial femoral condyle. I established an anteromedial arthroscopy portal under direct visualization. I probed the medial meniscus. There was some complexity to the turn in the posterior horn. There was no large displaced bucket handle or large parrot beak tear. However, there was a small parrot beak tear that appeared to be tucked inferior to the posterior horn. There was also a very small flap, parrot beak, closer to the root that appeared to displace superiorly and slightly posteriorly. There was no fragment clearly displaced into the intercondylar notch. Using biters, arthroscopic as well shaver, I debrided the medial meniscus back to a stable rim of tissue. After I was done with this, I again probed it along its length and found no other fragments or tears. I should say that the patient still has an excellent amount of medial meniscus present along its entire length to provide shock absorbing function. However, I was disappointed in the level of the patient's damage, loss of articular cartilage, more than clearly appreciated on preoperative imaging. During the course of the procedure, the patient's MCL was appreciated to stretch out slightly, recognized by increased opening in the medial compartment. Continuing the diagnostic arthroscopy, the patient's ACL and PCL were intact in the intercondylar notch. The intercondylar notch was noted to be quite narrowed , likely from some spurring about it. I should mention that the patient was also noted to have some small spurs about the most medial aspect of the medial femoral condyle. I moved to the lateral compartment. No significant articular cartilage or meniscus injury appreciated there. I next went back to the patellofemoral compartment. With an arthroscopic shaver , working through the anterolateral portal and then working through a second anteromedial portal, I debrided synovitic tissue about the anterior knee. This allowed better visualization of the patellofemoral compartment, which identified a large area of complete grade 4 articular cartilage loss in the lateral aspect of the trochlear groove. I removed all instruments and fluids from the knee. Given the level of degenerative changes of articular cartilage of the knee, I decided to perform a cortisone injection. I injected 1.5 cc of Depo-Medrol which was at a concentration of 80 mg per mL. So, I injected a total of 120 mg. This was injected into the knee joint after the skin incisions had been closed with [id number] 12 stitches using nylon 3.0 suture. I also injected the subcutaneous tissues about the skin incisions with 20 cc of Marcaine 0.5% with epinephrine. Xeroform, 4x4s, ABD's, sterile Webril, Ramon bandage from foot to the proximal thigh. Tourniquet was dropped. Cooling unit applied to the knee. The patient was awakened, extubated and brought to the PACU. DISPOSITION: The patient discharged home when medically stable. Wound care instructions provided. Percocet as needed for pain control. The patient will start physical therapy immediately. She will see me in clinic in 10 to 14 days postoperatively. [id number]/[facility] #: [id number] ELAINE
== END | disposition home or self-care (01) ==
LOC: OR 08:30
PROVIDERS: ATTEND Orthopaedic Surgery
DX: M23.232 Derangement of other medial meniscus due to old tear or injury, left knee (principal); M17.12 Unilateral primary osteoarthritis, left knee; I10 Essential (primary) hypertension; Z87.891 Personal history of nicotine dependence; E03.9 Hypothyroidism, unspecified; K21.9 Gastro-esophageal reflux disease without esophagitis; M19.90 Unspecified osteoarthritis, unspecified site
CPT/HCPCS: A9270-GY; J0360; J0690; J1030; J1040; J1100; J1170; J1240; J1885; J2250; J2405; J2704; J3010